=== PATIENT | female | born 1960 | race Caucasian/White ===

== ENCOUNTER → 2016-12-05 | Outpatient (CLI) | payer OTHER ==
[~2016-12-05] MED LIST: CALC600T12 PO; ENAL10TA PO; ESCI20TA45 PO; MESA800T PO; MESA800T3 PO; MULT-1029 PO; OMEG-160 PO; PRD10T PO; PRD20T PO
--- NOTE | 2016-12-06 20:09 | Diagnostic Imaging Report ---
Bilateral screening mammogram The current study was also evaluated with a Computer Aided Detection (CAD) system. Indication: Screening. No current complaints stated on the questionnaire. COMPARISON: 08/25/15 FINDINGS: The breasts are composed of scattered fibroglandular densities. There are scattered benign-appearing calcifications seen. Allowing for technique and positional differences, no suspicious change is seen. IMPRESSION: No significant change. ACR BI-RADS Category 2: Benign findings. Result letter will be mailed to the patient. Note: At least 10% of breast cancer is not imaged by mammography. Dictated by: Dictated on workstation # [id number]
== END ==
LOC: RAD 12:39
PROVIDERS: ATTEND Family Medicine
DX: Z12.31 Encounter for screening mammogram for malignant neoplasm of breast (principal)
CPT/HCPCS: 77067

== ENCOUNTER → 2016-12-13 | Outpatient (CLI) | payer OTHER ==
[~2016-12-13] MED LIST changes: +BARIUM SUSPENSION 2.1% (VANILLA SILQ) 450 ML PO ONE; -CALC600T12 PO; +IOHEXOL 350 MG/ML 100 ML (OMNIPAQUE 350) VIAL IV ONE; -MESA800T PO; -MESA800T3 PO; -MULT-1029 PO; +NS 100 ML (IVPB) BAG IV ONE; -OMEG-160 PO; -PRD10T PO; -PRD20T PO
[2016-12-13 07:25] LABS: BLOOD UREA NITROGEN 8 MG/DL (7-18); BUN/CREATININE RATIO 10; GFR ESTIMATED > 60
--- NOTE | 2016-12-13 09:38 | Diagnostic Imaging Report ---
PROCEDURE: CT abdomen and pelvis with contrast. TECHNIQUE: Multiple contiguous axial images were obtained through the abdomen and pelvis after administration of intravenous contrast. INDICATION: Left abdominal pain, rectal bleeding. 100 mL Omnipaque 350 administered intravenously. FINDINGS: The lung bases appear clear. The liver, the gallbladder, the spleen, the pancreas, and the adrenals appear unremarkable. The kidneys have symmetric enhancement and contrast excretion. There is no hydronephrosis. There is a 1.3-cm cyst in the left kidney seen. Another hypodensity measuring 8 mm in the lower pole of the left kidney is too small to accurately characterize. The abdominal aorta is normal in caliber. No significantly enlarged para-aortic lymph nodes are seen. There is colonic wall thickening suggestive of infectious or inflammatory colitis involving mostly the left colon from the splenic flexure to the rectum. The appendix appears normal. There is no significant free fluid or fluid collection in the abdomen or pelvis. Minimally prominent nonspecific mesenteric lymph nodes are seen up to 0.8 cm in the right lower quadrant. There is suggestion of prior hysterectomy. The urinary bladder is empty. The osseous structures demonstrate prominent sclerotic changes of the sacroiliac joints with associated subchondral erosion compatible with bilateral sacroiliitis. There are also degenerative changes seen in the hip joints of moderate degree worse on the right side and degenerative disc changes in the lumbar spine noted. No effusion or ankylosing changes are seen in the lumbar spine. IMPRESSION: 1. Thickening in the left colon and rectum is suggestive of inflammatory or infectious colitis. 2. There is suggestion of bilateral sacroiliitis. Report was faxed to office of Dr. Donovan @ 9:36 AM/charisse. Dictated by: Dictated on workstation # [id number]
== END ==
LOC: RAD 06:52
PROVIDERS: ATTEND Surgery
DX: K63.89 Other specified diseases of intestine (principal)
CPT/HCPCS: 36415; 74177; 82565; 84520

== ENCOUNTER 2016-12-14 13:11 | Outpatient (CLI) | payer OTHER ==
[2016-12-14] MEDS ORDERED: ENAL10TA PO (13:24)
[2016-12-14] MEDS ORDERED: ESCI20TA45 PO (13:24)
[2016-12-17] MEDS ORDERED: PRD20T PO (15:11)
[2016-12-17] MEDS ORDERED: MESA800T PO (15:12)
== END 2016-12-14 13:27 ==
LOC: PREOP 13:11
PROVIDERS: ATTEND Surgery
DX: Z01.818 Encounter for other preprocedural examination (principal); K62.5 Hemorrhage of anus and rectum

== ENCOUNTER 2016-12-17 11:50 | Day surgery (SDC) | payer OTHER ==
[~2016-12-17] VITALS: Ht 170.2 cm; Wt 70.8 kg
[~2016-12-17 11:50] MED LIST changes: -BARIUM SUSPENSION 2.1% (VANILLA SILQ) 450 ML PO ONE; -IOHEXOL 350 MG/ML 100 ML (OMNIPAQUE 350) VIAL IV ONE; -NS 100 ML (IVPB) BAG IV ONE
[2016-12-17] MEDS ORDERED: NS IV 500 ML 500 ML ONE (12:12)
[2016-12-17] MEDS ORDERED: NS IV 500 ML 500 ML IV ONE (12:15)
[2016-12-17 12:30] VITALS: BP 105/53
--- NOTE | 2016-12-17 14:18 | Conscious Sedation/ASA ---
Conscious Sedation Pre-Proced Time Reviewed: 12:30 ASA Class: 2 Airway Mallampati Classification: ([place] appropriate class) I. II. III, IV Lungs Heart ASA score ASA 1: a normal healthy patient ASA 2: a patient with a mild systemic disease (mid diabetes, controlled hypertension, obesity ASA 3: a patient with a severe systemic disease that limits activity (angina , COPD, prior Myocardial infarction) ASA 4: a patient with an incapacitating disease that is a constant threat to life (CHF, renal failure) ASA 5: a moribund patient not expected to survive 24 hrs. (ruptured aneurysm) ASA 6: a declared brain patient whose organs are being harvested. For emergent operations, add the letter E after the classification Grade 2 Sedation Plan: Discussed options with patient/fam Note The patient is an appropriate candidate to undergo the planned procedure, sedation, and anesthesia. The patient immediately re-assessed prior to indication. EUNICE RAMACHANDRAN MD Dec 17, 2016 2:18 pm
[2016-12-17] MEDS ORDERED: MIDAZOLAM 2 MG/2 ML (VERSED) VIAL ONE ×3 (14:28→14:29)
[2016-12-17] MEDS ORDERED: fentaNYL INJECTION 100 MCG/2 ML AMP ONE (14:28)
[2016-12-17] MEDS: MIDAZOLAM 2 MG/2 ML (VERSED) VIAL IVP PRN ×5 (14:35→14:49)
[2016-12-17] MEDS: fentaNYL INJECTION 100 MCG/2 ML AMP IVP PRN ×4 (14:36→14:50)
--- NOTE | 2016-12-17 15:09 | Endo Procedure Record ---
Endo Procedure Report Date of Procedure Dec 17, 2016 Surgeon (s) EUNICE RAMACHANDRAN MD Post Procedure/Op Diagnosis diffuse inflammation and superficial ulceration extending from the distal rectum, all the way up to the cecum, suggestive of chronic ulcerative colitis Procedure Performed colonoscopy to cecum multiple biopsies Description of Procedure Anesthesia Type: Conscious Sedation Specimen(s) collected/removed mucosal biopsies of different segments of the colon Description of the Procedure Indication for procedure: This lady reported bloody diarrhea and colicky abdominal pain of several days' duration. CT scan showed thickening of the left colon. She was offered colonoscopy to establish a definitive diagnosis. Informed consent was obtained after reviewing the procedure in detail. Description of procedure: She was placed in left lateral decubitus position and her vital signs were monitored. Conscious sedation was achieved using Versed and fentanyl. Digital rectal examination was unremarkable. The colonoscope was then introduced into the rectum and advanced all the way up to cecum. The scope was then withdrawn slowly and the mucosa examined in a systematic fashion. Finding: Diffuse inflammation and superficial ulceration extending from the distal rectum to the cecum. The changes were more pronounced along the sigmoid colon. Multiple biopsies were obtained. She tolerated the procedure well and was taken back to the nursing area in a stable condition. Impression: Bloody diarrhea and abdominal pain. Diffuse inflammation and ulceration. Possibly chronic ulcerative colitis. We will initiate therapy pending histology. Copies To: LOKI DUBON MD, XAVIER M MD Dec 17, 2016 3:09 pm
[2016-12-17] MEDS ORDERED: PRD20T PO ×2 (15:11)
[2016-12-17] MEDS ORDERED: MESA800T PO ×2 (15:12)
--- NOTE | 2016-12-17 15:13 | Discharge Inst-Simple/Standard ---
Discharge Inst-Standard Discharge Medications New, Converted or Re-Newed RX: RX on Chart Patient Instructions/Follow Up Plan of Care/Instructions/FU: ffollow-up with me on December 31 at 2 p.m. Activity as Tolerated: Yes Discharge Diet: No Restrictions EUNICE RAMACHANDRAN MD Dec 17, 2016 3:13 pm
[2016-12-17 15:20] VITALS: BP 133/80
[2016-12-17 15:50] VITALS: BP 119/71
[2016-12-17 16:07] VITALS: BP 119/71
== END 2016-12-17 16:12 | disposition home or self-care (01) ==
LOC: ENDO 11:50
PROVIDERS: ATTEND Surgery
DX: K63.3 Ulcer of intestine (principal); K52.9 Noninfective gastroenteritis and colitis, unspecified; Z83.71 Family history of colonic polyps
CPT/HCPCS: 88305

== ENCOUNTER → 2016-12-20 | Outpatient (CLI) | payer OTHER ==
[~2016-12-20] MED LIST changes: +CALC600T12 PO; +MESA800T PO; +MESA800T3 PO; +MULT-1029 PO; +OMEG-160 PO; +PRD10T PO; +PRD20T PO
== END ==
LOC: PREOP 05:43
PROVIDERS: ATTEND Surgery
DX: Z01.818 Encounter for other preprocedural examination (principal); K62.5 Hemorrhage of anus and rectum

== ENCOUNTER 2017-01-06 20:19 | Observation (INO) | payer OTHER ==
[~2017-01-06] VITALS: Ht 170.2 cm; Wt 78.0 kg
[~2017-01-06 20:19] MED LIST changes: -CALC600T12 PO; -MESA800T3 PO; -MULT-1029 PO; -OMEG-160 PO; -PRD10T PO
[2017-01-06] MEDS ORDERED: MESA800T3 PO (20:32)
[2017-01-06] MEDS ORDERED: PRD10T PO (20:32)
[2017-01-06 20:41] LABS: BASOPHILS % (AUTO) 0 % (0-10); EOSINOPHILS # (AUTO) 0.1 10^3/uL (0.0-0.3); EOSINOPHILS % (AUTO) 0 % (0-10); LYMPHOCYTES % (AUTO) 13 % (12-44); MEAN CORPUSCULAR HEMOGLOBIN 32 PG (25-34); MEAN CORPUSCULAR HGB CONC 33 G/DL (32-36); MEAN CORPUSCULAR VOLUME 98 FL (80-99); MEAN PLATELET VOLUME 8.6 FL (7.4-10.4); MONOCYTES # (AUTO) 1.2 X 10^3 (0.0-1.0); MONOCYTES % (AUTO) 7 % (0-12); NEUTROPHILS # (AUTO) 12.6 X 10^3 (1.8-7.8); NEUTROPHILS % (AUTO) 79 % (42-75); PLATELET COUNT 389 10^3/uL (130-400); RED BLOOD COUNT 3.72 10^6/uL (4.35-5.85); RED CELL DISTRIBUTION WIDTH 15.1 % (10.0-14.5); WHITE BLOOD COUNT 15.9 10^3/uL (4.3-11.0)
[2017-01-06] MEDS ORDERED: ACETAMINOPHEN 500 MG TAB (TYLENOL) PO STA (20:41)
--- NOTE | 2017-01-06 20:41 | ED Chest Pain ---
General Chief Complaint: Chest Pain Stated Complaint: HEADACHE NAUSEA Nursing Triage Note: C/O chest tightness and headache with nausea Nursing Sepsis Screen: No Definite Risk History of Present Illness Time seen by provider: 20:27 Initial Comments Patient reports right-sided chest tightness and pressure. She has a history of ulcerative colitis, she's been treated that she'll by Dr. Ramachandran and Dr. Shepard she is currently on a tapering dose of prednisone for that. She quit smoking in July of this year and stopped taking the aspirin and Tylenol. Timing/Duration: 1-3 hours Severity/Quality: moderate, dull Radiation: no radiation Activities at Onset: none Prior CP/Workup: no prior chest pain, no prior cardiac workup ASA po BUSINESS DEVELOPMENT OFFICER: No NTG SL BUSINESS DEVELOPMENT OFFICER: No Associated Symptoms: fever/chills Allergies and Home Medications Allergies Coded Allergies: No Known Drug Allergies (Unverified , 12/14/16) Home Medications Enalapril Maleate 10 Mg Tablet, 10 MG PO DAILY, (Reported) Escitalopram Oxalate 20 Mg Tablet, 20 MG PO DAILY, (Reported) Mesalamine 800 Mg Tablet.dr, #180 (Reported) Prednisone 10 Mg Tab, #109 (Reported) Review of Systems Constitutional: see HPI, fever, malaise EENTM: No Symptoms Reported, See HPI Respiratory: See HPI, Shortness of Air Cardiovascular: See HPI, Chest Pain Gastrointestinal: No Symptoms Reported, See HPI, Denies Abdominal Pain, Denies Blood Streaked Stools Genitourinary: No Symptoms Reported, See HPI Musculoskeletal: no symptoms reported, see HPI Skin: no symptoms reported, see HPI Psychiatric/Neurological: No Symptoms Reported, See HPI Endocrine: No Symptoms Reported, See HPI Hematologic/Lymphatic: No Symptoms Reported, See HPI All Other Systems Reviewed Negative Unless Noted: Yes Past Qgiqobl-Tnsdww-Otnvyn Hx Patient Social History Alcohol Use: Denies Use Recreational Drug Use: No Smoking Status: Former Smoker Recent Foreign Travel: No Contact w/Someone Who Travel: No Recent Infectious Disease Expo: No Recent Hopitalizations: No Seasonal Allergies Seasonal Allergies: No Surgeries HX Surgeries: Yes (jaw sx, left knee) Surgeries: Hysterectomy Respiratory Hx Respiratory Disorders: No Cardiovascular Hx Cardiac Disorders: Yes Cardiac Disorders: Hypertension Neurological Hx Neurological Disorders: No 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 Genitourinary Hx Genitourinary Disorders: No Gastrointestinal Hx Gastrointestinal Disorders: Yes (rectal bleeding) Gastrointestinal Disorders: Colitis, Chronic Diarrhea Musculoskeletal Hx Musculoskeletal Disorders: No Endocrine Hx Endocrine Disorders: No HEENT HX ENT Disorders: No Cancer Hx Cancer: No Psychosocial Hx Psychiatric Problems: Yes Behavioral Health Disorders: Depression Integumentary HX Skin/Integumentary Disorder: No Blood Transfusions Hx Blood Disorders: No Reviewed Nursing Assessment Reviewed/Agree w Nursing PMH: Yes Physical Exam Vital Signs Vital Sign - Last 12Hours 01/06/17 01/06/17 20:27 20:33 Temp 101.6 Pulse 72 Resp 14 B/P (MAP) 124/83 Pulse Ox 100 O2 Delivery Room Air Capillary Refill : Less Than 3 Seconds General Appearance: No Apparent Distress, WD/WN HEENT: PERRL/EOMI, TMs Normal, Normal ENT Inspection, Pharynx Normal Neck: Full Range of Motion, Normal Inspection, Non Tender, Supple Respiratory: Chest Non Tender, Lungs Clear, Normal Breath Sounds Cardiovascular: Regular Rate, Rhythm, Normal Peripheral Pulses Gastrointestinal: Normal Bowel Sounds, No Organomegaly, No Pulsatile Mass, Non Tender, Soft Extremity: Normal Capillary Refill, Normal Inspection, Normal Range of Motion, Non Tender, No Calf Tenderness, No Pedal Edema Neurologic/Psychiatric: Alert, Oriented x3, No Motor/Sensory Deficits, Normal Mood/Affect Skin: Normal Color, Warm/Dry Lymphatic: No Adenopathy Focused Exam Lactic Acid Level Laboratory Tests Test 01/06/17 20:30 01/06/17 22:15 Lactic Acid Level 2.42 MMOL/L (0.50-2.00) *H 1.86 MMOL/L (0.50-2.00) Progress/Results/Core Measures Results/Orders Lab Results Laboratory Tests Test 01/06/17 20:30 01/06/17 21:00 01/06/17 22:15 Range/Units White Blood Count 15.9 H 4.3-11.0 10^3/uL Red Blood Count 3.72 L 4.35-5.85 10^6/uL Hemoglobin 11.9 11.5-16.0 G/DL Hematocrit 37 35-52 % Mean Corpuscular Volume 98 80-99 FL Mean Corpuscular Hemoglobin 32 25-34 PG Mean Corpuscular Hemoglobin Concent 33 32-36 G/DL Red Cell Distribution Width 15.1 H 10.0-14.5 % Platelet Count 389 130-400 10^3/uL Mean Platelet Volume 8.6 7.4-10.4 FL Neutrophils (%) (Auto) 79 H 42-75 % Lymphocytes (%) (Auto) 13 12-44 % Monocytes (%) (Auto) 7 0-12 % Eosinophils (%) (Auto) 0 0-10 % Basophils (%) (Auto) 0 0-10 % Neutrophils # (Auto) 12.6 H 1.8-7.8 X 10^3 Lymphocytes # (Auto) 2.0 1.0-4.0 X 10^3 Monocytes # (Auto) 1.2 H 0.0-1.0 X 10^3 Eosinophils # (Auto) 0.1 0.0-0.3 10^3/uL Basophils # (Auto) 0.0 0.0-0.1 10^3/uL Neutrophils % (Manual) 75 % Lymphocytes % (Manual) 16 % Monocytes % (Manual) 1 % Eosinophils % (Manual) 0 % Basophils % (Manual) 0 % Band Neutrophils 8 % Blood Morphology Comment NORMAL Prothrombin Time 11.6 L 12.2-14.7 SEC INR Comment 0.9 0.8-1.4 Activated Partial Thromboplast Time 24 24-35 SEC D-Dimer 1.24 H 0.00-0.49 UG/ML Sodium Level 136 135-145 MMOL/L Potassium Level 4.1 3.6-5.0 MMOL/L Chloride Level 98 98-107 MMOL/L Carbon Dioxide Level 25 21-32 MMOL/L Anion Gap 13 5-14 MMOL/L Blood Urea Nitrogen 11 7-18 MG/DL Creatinine 0.74 0.60-1.30 MG/DL Estimat Glomerular Filtration Rate > 60 BUN/Creatinine Ratio 15 Glucose Level 102 70-105 MG/DL Lactic Acid Level 2.42 *H 1.86 0.50-2.00 MMOL/L Calcium Level 8.6 8.5-10.1 MG/DL Magnesium Level 2.2 1.8-2.4 MG/DL Total Bilirubin 0.4 0.1-1.0 MG/DL Aspartate Amino Transf (AST/SGOT) 18 5-34 U/L Alanine Aminotransferase (ALT/SGPT) 19 0-55 U/L Alkaline Phosphatase 106 40-136 U/L Myoglobin 25.2 10.0-92.0 NG/ML Troponin I < 0.30 <0.30 NG/ML Total Protein 6.5 6.4-8.2 GM/DL Albumin 3.7 3.2-4.5 GM/DL Urine Color YELLOW Urine Clarity CLEAR Urine pH 6 5-9 Urine Specific [place] 1.020 1.016-1.022 Urine Protein 1+ H NEGATIVE Urine Glucose (UA) NEGATIVE NEGATIVE Urine Ketones NEGATIVE NEGATIVE Urine Nitrite NEGATIVE NEGATIVE Urine Bilirubin NEGATIVE NEGATIVE Urine Urobilinogen NORMAL NORMAL MG/DL Urine Leukocyte Esterase 1+ H NEGATIVE Urine RBC (Auto) 1+ H NEGATIVE Urine RBC 0-2 /HPF Urine WBC 2-5 /HPF Urine Squamous Epithelial Cells 2-5 /HPF Urine Crystals NONE /LPF Urine Bacteria TRACE /HPF Urine Casts NONE /LPF Urine Mucus LARGE H /LPF Urine Culture Indicated NO Stool Occult Blood Immunoassay POSITIVE H NEGATIVE My Orders Orders - TERI PANTOJA Cbc With Automated Diff (01/06/17 20:32) Magnesium (01/06/17 20:32) Chest 1 View, Ap/Pa Only (01/06/17 20:32) Cardiac Profile 1 (01/06/17 20:32) Comprehensive Metabolic Panel (01/06/17 20:32) Myoglobin Serum (01/06/17 20:32) Protime With Inr (01/06/17 20:32) Partial Thromboplastin Time (01/06/17 20:32) Monitor-Rhythm Ecg Trace Only (01/06/17 20:32) Lipid Panel (01/07/17 06:00) Saline Lock/Iv-Start (01/06/17 20:32) Blood Culture (01/06/17 20:37) Lactic Acid Analyzer (01/06/17 20:37) Fibrin Degradation Products (01/06/17 20:37) Acetaminophen Tablet (Tylenol Tablet) (01/06/17 20:41) Manual Differential (01/06/17 20:30) Saline Lock/Iv-Start (01/06/17 21:09) Ns Iv 1000 Ml (Sodium Chloride 0.9%) (01/06/17 21:09) Ct Angio Chest W (01/06/17 21:12) Stool Culture (01/06/17 21:15) Occult Blood Stool (01/06/17 21:15) C Difficile Ag + Toxin A/B. (01/06/17 21:15) Ua Culture If Indicated (01/06/17 21:26) Ondansetron Injection (Zofran Injectio (01/06/17 21:45) Iohexol Injection (Omnipaque 350 Mg/Ml 1 (01/06/17 22:30) Prednisone Tablet (Deltasone Tablet) (01/06/17 22:30) Morphine Injection (Morphine Injection (01/06/17 22:42) Medications Given in ED Current Medications Medications Dose Ordered Sig/Crissy Route Start Time Stop Time Status Last Admin Dose Admin Iohexol 150 ml ONCE ONCE IV 01/06/17 22:30 01/06/17 22:31 DC 01/06/17 22:25 125 ML Ondansetron HCl 4 mg ONCE ONCE IVP 01/06/17 21:45 01/06/17 21:46 DC 01/06/17 21:46 4 MG Sodium Chloride 1,000 ml @ 0 mls/hr Q0M ONCE IV 01/06/17 21:09 01/06/17 21:10 DC 01/06/17 21:14 0 MLS/HR Vital Signs/I&O Vital Sign - Last 12Hours 01/06/17 01/06/17 20:27 20:33 Temp 101.6 Pulse 72 Resp 14 B/P (MAP) 124/83 Pulse Ox 100 O2 Delivery Room Air Blood Pressure Mean: 97 Progress Note : Time: 20:30 Progress Note Initial evaluation completed, labs, EKG and assessment completed. No aspirin indicated with her previous history of ulcerative colitis and symptoms more of respiratory or abdominal knee. Tylenol 1000 mg for fever. Normal saline 1 L IV 2114 chest x-ray negative, elevated d-dimer and WBC, recommended CT angiography of the chest. We'll reevaluate after this assessment completed. 2129 Zofran 4 mg IV for nausea. Reviewed assessment and diagnostic studies with Dr. Granados agreed with treatment plan thus far. 2144 patient complaining of headache with morphine 2 mg IV, patient reports nausea has improved. Discussed patient with Dr. Noyola by phone who agreed with admission orders. Will consult Dr. Ramachandran in the morning. So sent for antibiotic coverage at this time. CT angiography of the chest negative. ECG Initial ECG Impression Date: Jan 06, 2017 Initial ECG Impression Time: 20:29 Initial ECG Rate: 73 Initial ECG Rhythm: Normal Sinus Initial ECG Intervals: Normal Initial ECG Intervals NM 130, QRS 76, QT 352, QTc 388. [place] PV, QRS 32, T 43. Initial ECG Impression: Normal Initial ECG Comparisson: No Previous ECG Available Comment Reviewed EKG with Dr. Granados, concurred with interpretation. Diagnostic Imaging Diagonstic Imaging: Xray Plain Films/CT/US/NM/MRI: chest Comments NAME: [facility] REC#: [id number] PT STATUS: REG ER : 1960 PHYSICIAN: TERI PANTOJA ADMIT DATE: 01/06/17/ER Signed Date of Exam: 01/06/17 CHEST 1 VIEW, AP/PA ONLY INDICATION: Chest pain. EXAMINATION: Upright portable chest was obtained. FINDINGS: Normal heart size and vascularity. The lungs are clear. There is no effusion or pneumothorax. IMPRESSION: Normal chest. Dictated by: Dictated on workstation # [id number] Dict: 01/06/172043 Trans: 01/06/172111 Interpreted by: EUGENE RUTHERFORD MD Electronically signed by: EUGENE RUTHERFORD MD 01/06/172111 Reviewed: Reviewed by Me Diagonstic Imaging: CT (angiography chest) Plain Films/CT/US/NM/MRI: chest Comments Per staff had impression no PE or aortic dissection, no focal consolidation, right middle lobe subpleural nodularity, follow up per final report colonic thickening concerning for colitis. Reviewed: Reviewed by Me Departure Impression Impression: Primary Impression: Ulcerative colitis Qualified Codes: K51.90 - Ulcerative colitis, unspecified, without complications Additional Impressions: Abdominal pain Qualified Codes: R10.84 - Generalized abdominal pain Dehydration Disposition: ADMITTED INPATIENT Condition: Stable Decision to Admit Reason: Admit from ER (General) Decision to Admit/Date: Jan 06, 2017 Time/Decision to Admit Time: 21:45 Departure-Patient Inst. Referrals: LOKI DUBON MD (PCP/Family) Primary Care Physician Copy Copies To 1: LOKI DUBON MD Copies To 2: EUNICE RAMACHANDRAN MD, AMY ARNP Jan 06, 2017 20:41
--- NOTE | 2017-01-06 20:47 | Diagnostic Imaging Report ---
INDICATION: Chest pain. EXAMINATION: Upright portable chest was obtained. FINDINGS: Normal heart size and vascularity. The lungs are clear. There is no effusion or pneumothorax. IMPRESSION: Normal chest. Dictated by: Dictated on workstation # [id number]
[2017-01-06 20:51] LABS: INR 0.9 (0.8-1.4); PROTHROMBIN TIME PATIENT 11.6 SEC (12.2-14.7)
[2017-01-06 20:58] LABS: BAND NEUTROPHILS 8 %; BASOPHILS % (MANUAL) 0 %; EOSINOPHILS % (MANUAL) 0 %; LYMPHOCYTES % (MANUAL) 16 %; NEUTROPHILS % (MANUAL) 75 %
[2017-01-06 21:02] LABS: ALANINE AMINOTRANSFERASE 19 U/L (0-55); ALBUMIN 3.7 GM/DL (3.2-4.5); ANION GAP 13 MMOL/L (5-14); ASPARTATE AMINO TRANSFERASE 18 U/L (5-34); BILIRUBIN,TOTAL 0.4 MG/DL (0.1-1.0); BLOOD UREA NITROGEN 11 MG/DL (7-18); BUN/CREATININE RATIO 15; CALCIUM 8.6 MG/DL (8.5-10.1); CARBON DIOXIDE 25 MMOL/L (21-32); CHLORIDE 98 MMOL/L (98-107); CREATININE SERUM 0.74 MG/DL (0.60-1.30); GFR ESTIMATED > 60; GLUCOSE 102 MG/DL (70-105); MAGNESIUM 2.2 MG/DL (1.8-2.4); POTASSIUM 4.1 MMOL/L (3.6-5.0); SODIUM 136 MMOL/L (135-145); TOTAL PROTEIN 6.5 GM/DL (6.4-8.2)
[2017-01-06 21:09] LABS: MYOGLOBIN SERUM 25.2 NG/ML (10.0-92.0)
[2017-01-06] MEDS ORDERED: NS IV 1000 ML 1,000 ML IV ONE ×2 (21:09→22:47)
[2017-01-06 21:34] LABS: BILIRUBIN,URINE NEGATIVE (NEGATIVE); KETONES,URINE NEGATIVE (NEGATIVE); LEUKOCYTE ESTERASE ,URINE 1+ (NEGATIVE); NITRITE,URINE NEGATIVE (NEGATIVE); PH,URINE 6 (5-9); PROTEIN,URINE 1+ (NEGATIVE); UROBILINOGEN,URINE NORMAL (NORMAL)
[2017-01-06] MEDS ORDERED: ONDANSETRON 4 MG/2 ML (SDV) Z0FRAN IVP ONE (21:45)
[2017-01-06] MEDS ORDERED: predniSONE 20 MG TAB PO ONE (22:30)
[2017-01-06] MEDS ORDERED: IOHEXOL 350 MG/ML 150 ML (OMNIPAQUE 350) VIAL IV ONE (22:30)
[2017-01-06] MEDS ORDERED: morphine INJ 10 MG/ML 1ML (SYR OR VIAL) IVP STA (22:42)
[2017-01-06 23:45] VITALS: BP 105/59
[2017-01-06] MEDS ORDERED: PIPERACILLIN/TAZOBACTAM 4.5 GM/NS 100 ML IV ONE ×2 (23:45)
[2017-01-06] MEDS ORDERED: CATHETER FLUSH 10 ML SYR IV PRN (23:45)
[2017-01-06] MEDS ORDERED: ONDANSETRON 4 MG/2 ML (SDV) Z0FRAN IV PRN (23:45)
[2017-01-07] MEDS: NS IV 1000 ML 1,000 ML IV SCH ×3 (00:02→21:16)
[2017-01-07] MEDS ORDERED: PIPERACILLIN/TAZOBACTAM 4.5 GM/NS100 ML IVPB IV ONE ×2 (00:30)
[2017-01-07 03:25] VITALS: BP 108/65
[2017-01-07] MEDS: ACETAMINOPHEN 325 MG TABLET/CAPLET (TYLENOL) PO PRN ×2 (04:05→09:45)
[2017-01-07 04:53] LABS: BASOPHILS % (AUTO) 0 % (0-10); EOSINOPHILS % (AUTO) 0 % (0-10); LYMPHOCYTES # (AUTO) 0.7 X 10^3 (1.0-4.0); LYMPHOCYTES % (AUTO) 7 % (12-44); MEAN CORPUSCULAR HEMOGLOBIN 31 PG (25-34); MEAN CORPUSCULAR HGB CONC 31 G/DL (32-36); MEAN CORPUSCULAR VOLUME 99 FL (80-99); MEAN PLATELET VOLUME 8.6 FL (7.4-10.4); MONOCYTES # (AUTO) 0.7 X 10^3 (0.0-1.0); MONOCYTES % (AUTO) 7 % (0-12); NEUTROPHILS # (AUTO) 9.3 X 10^3 (1.8-7.8); NEUTROPHILS % (AUTO) 86 % (42-75); PLATELET COUNT 337 10^3/uL (130-400); RED BLOOD COUNT 3.37 10^6/uL (4.35-5.85); RED CELL DISTRIBUTION WIDTH 15.5 % (10.0-14.5); WHITE BLOOD COUNT 10.8 10^3/uL (4.3-11.0)
[2017-01-07 05:28] LABS: ALANINE AMINOTRANSFERASE 28 U/L (0-55); ALBUMIN 3.1 GM/DL (3.2-4.5); ANION GAP 9 MMOL/L (5-14); ASPARTATE AMINO TRANSFERASE 23 U/L (5-34); BILIRUBIN,TOTAL 0.8 MG/DL (0.1-1.0); BLOOD UREA NITROGEN 9 MG/DL (7-18); BUN/CREATININE RATIO 12; CALCIUM 8.1 MG/DL (8.5-10.1); CARBON DIOXIDE 24 MMOL/L (21-32); CHLORIDE 104 MMOL/L (98-107); CREATININE SERUM 0.75 MG/DL (0.60-1.30); GFR ESTIMATED > 60; GLUCOSE 125 MG/DL (70-105); POTASSIUM 4.4 MMOL/L (3.6-5.0); SODIUM 137 MMOL/L (135-145); TOTAL PROTEIN 5.5 GM/DL (6.4-8.2)
[2017-01-07] MEDS: CATHETER FLUSH 10 ML SYR IV SCH ×3 (05:44→21:11)
[2017-01-07] MEDS: PIPERACILLIN/TAZOBACTAM 4.5 GM/NS100 ML IVPB IV SCH ×6 (05:44→21:16)
[2017-01-07 05:58] LABS: CHOLESTEROL 162 MG/DL (< 200); DIRECT LDL 47 MG/DL (1-129); TRIGLYCERIDES 67 MG/DL (<150); VLDL CHOLESTEROL 13 MG/DL (5-40)
[2017-01-07] MEDS: morphine INJ 10 MG/ML 1ML (SYR OR VIAL) IV PRN ×3 (06:50→13:06)
[2017-01-07 08:00] VITALS: BP 111/66
--- NOTE | 2017-01-07 08:00 | Diagnostic Imaging Report ---
PROCEDURE: CT angiography of the chest with contrast. TECHNIQUE: Multiple contiguous axial images were obtained through the chest after uneventful bolus administration of intravenous contrast. Reconstructed CTA MIP acquisitions were also performed. INDICATION: Chest pain, elevated D-dimer. There are no intraluminal pulmonary arterial filling defects. There were no findings of pulmonary arterial embolus. The patent thoracic aorta is nonaneurysmal. No mural hemorrhage or dissection. Subpleural nodule in the right middle lobe measuring 6 mm. No focal pulmonary consolidation. There is some mild heterogeneous air trapping with slight dependent basilar atelectasis. No thoracic effusion or pneumothorax. No adenopathy. Visualized upper abdomen reveals a fatty liver with abnormal thickening of the floyd of the distal ascending colon, the transverse colon, and the proximal descending colon consistent with nonspecific colitis. No upper abdominal free fluid. Some left renal cortical cysts without hydronephrosis. IMPRESSION: 1. Negative for PE or acute aortic pathology. 2. Partial visualization of the colon consistent with colitis. Mild hepatic steatosis and benign left renal cysts. 3. Subpleural nodule, right middle lobe, etiology indeterminate, however, assuming the absence of any known primary malignancy, would suggest followup CT chest in six months' time. That would not require IV contrast. Dictated by: Dictated on workstation # [id number]
--- NOTE | 2017-01-07 08:09 | History & Physicial ---
History of Present Illness History of Present Illness Reason for visit/HPI 56-year-old female presents to the emergency room during the evening of January with headache and chest tightness. Patient was recently diagnosed with ulcerative colitis and she had seen Dr. Shepard on January 03 where her medications were adjusted. She does report the mesalamine medication was doubled from her surgeon Dr Donovan who recently had performed her colon. She reports she had been doing fairly well on mesalamine 800 mg 3 times a day. Date of Admission Jan 06, 2017 at 22:45 Date Seen by Provider: Jan 07, 2017 Time Seen by Provider: 07:50 I consulted on this patient on 01/07/17 08:04 Attending Physician Loki Adler MD Admitting Physician Loki Adler MD Consult Allergies and Home Medications Allergies Coded Allergies: No Known Drug Allergies (Unverified , 12/14/16) Home Medications Calcium Carbonate 600 Mg Tablet, 600 MG PO 1500, (Reported) Enalapril Maleate 10 Mg Tablet, 10 MG PO DAILY, (Reported) Escitalopram Oxalate 20 Mg Tablet, 20 MG PO DAILY, (Reported) Mesalamine 800 Mg Tablet.dr, 1,600 MG PO TID, (Reported) TAKES 2 (800 MG) TABLETS Multivit-Min/FA/Lycopene/Lut 1 Each Tablet, 1 TAB PO 1500, (Reported) [place]-3/Dha/Epa/Fish Oil 1 Each Capsule, 1,000 MG PO 1500, (Reported) Prednisone 10 Mg Tab, PO UD, (Reported) 4 TABS DAILY PO X 7 DAYS (CURRENTLY ON THIS WEEK) 3 TABS DAILY PO X 7 DAYS 2 TABS DAILY PO X 7 DAYS 1 & 1/2 TABS DAILY X 7 DAYS THEN 1 TAB DAILY THEREAFTER Past Owkbygv-Kkkmti-Lkufxj Hx Patient Social History Marrital Status: Alcohol Use: Occasionally Uses Recreational Drug Use: No Smoking Status: Former Smoker Type Used: Cigarettes Physical Abuse Screen: No Sexual Abuse: No Recent Foreign Travel: No Contact w/other who traveled: No Recent Hopitalizations: No Recent Infectious Disease Expo: No Immunizations Up To Date Date of Pneumonia Vaccine: Aug 07, 2014 Seasonal Allergies Seasonal Allergies: No Surgeries HX Surgeries: Yes (jaw sx, left knee) Surgeries: Hysterectomy Respiratory Hx Respiratory Disorders: No Cardiovascular Hx Cardiovascular Disorders: Yes Cardiac Disorders: Hypertension Neurological Hx Neurological Disorders: No Genitourinary Hx Genitourinary Disorders: No Gastrointestinal Hx Gastrointestinal Disorders: Yes (rectal bleeding) Gastrointestinal Disorders: Colitis, Chronic Diarrhea Musculoskeletal Hx Musculoskeletal Disorders: No Endocrine Hx Endocrine Disorders: No HEENT HX ENT Disorders: No Cancer Hx Cancer: No Psychosocial Hx Psychiatric Problems: Yes Behavioral Health Disorders: Depression Integumentary HX Skin/Integumentary Disorder: No Blood Transfusions Hx Blood Disorders: No Reviewed Nursing Assessment Reviewed/Agree w Nursing PMH: Yes Family Medical History Family Hx: Alzheimer's disease 19 FATHER, Onset:Unknown Drug abuse G8 BROTHER, Onset:Unknown FH: hearing loss 19 MOTHER, Onset:Unknown Ulcerative colitis G8 SISTER, Onset:Unknown Constitutional: see HPI Physical Exam Vital Signs Vital Sign - Last 12Hours 01/06/17 01/06/17 20:27 20:33 Temp 101.6 Pulse 72 Resp 14 B/P (MAP) 124/83 Pulse Ox 100 O2 Delivery Room Air Capillary Refill : Less Than 3 Seconds General Appearance: No Apparent Distress Eyes: Bilateral Eye Normal Inspection HEENT: Normal ENT Inspection Neck: Normal Inspection Respiratory: Lungs Clear Cardiovascular: Regular Rate, Rhythm Gastrointestinal: Abnormal Bowel Sounds (slightly increased), Distended (slight ) Rectal: Deferred Back: Normal Inspection Extremity: No Pedal Edema Assessment/Plan Assessment and Plan 1. Ulcerative colitis -continue with prednisone currently at 40mg po q day -consult Dr. Donovan -IVF at 75cc/hr 2. Headache--most likely related to mesalamine -headache improved currently 3. Chest pain-CT angio and CXR negative Problems: Admission Diagnosis 1. Ulcerative colitis 2. Headache--most likely related to mesalamine 3. Chest pain-CT angio and CXR negative Clinical Quality Measures AMI/AHF: ASA po Prior to arrival: No DVT/VTE Risk/Contraindication: Risk Factor Score Per Nursin RFS Level Per Nursing on Admit: 1=Low/No VTE PPX LOKI ADLER MD Jan 07, 2017 08:09
[2017-01-07] MEDS ORDERED: CALC600T12 PO (09:39)
[2017-01-07] MEDS ORDERED: MULT-1029 PO (09:39)
[2017-01-07] MEDS ORDERED: OMEG-160 PO (09:39)
[2017-01-07 11:48] VITALS: BP 118/70
[2017-01-07] MEDS: PANTOPRAZOLE 40 MG/10 ML (PROTONIX) VIAL IV SCH (14:29)
[2017-01-07 16:27] VITALS: BP 122/74
[2017-01-07] MEDS: predniSONE 10 MG TAB PO SCH (17:15)
[2017-01-07] MEDS ORDERED: ANTACID SUSP 30 ML UDC (MYLANTA) PO PRN (17:30)
--- NOTE | 2017-01-07 18:03 | Consultation ---
History of Present Illness History of Present Illness Patient Consulted On(luz maria/time) 01/07/17 18:01 Date Seen by Provider: Jan 07, 2017 Time Seen by Provider: 17:40 Reason for Visit: headache, shortness of breath and substernal discomfort History of Present Illness newly diagnosed ulcerative colitis on high doses of steroids and Asacol. Admitted with substernal pain headache and not feeling well. Pulmonary embolism ruled out by CT angiogram. Slightly nauseous. Allergies and Home Medications Allergies Coded Allergies: No Known Drug Allergies (Unverified , 12/14/16) Home Medications Calcium Carbonate 600 Mg Tablet, 600 MG PO 1500, (Reported) Enalapril Maleate 10 Mg Tablet, 10 MG PO DAILY, (Reported) Escitalopram Oxalate 20 Mg Tablet, 20 MG PO DAILY, (Reported) Mesalamine 800 Mg Tablet.dr, 1,600 MG PO TID, (Reported) TAKES 2 (800 MG) TABLETS Multivit-Min/FA/Lycopene/Lut 1 Each Tablet, 1 TAB PO 1500, (Reported) [place]-3/Dha/Epa/Fish Oil 1 Each Capsule, 1,000 MG PO 1500, (Reported) Prednisone 10 Mg Tab, PO UD, (Reported) 4 TABS DAILY PO X 7 DAYS (CURRENTLY ON THIS WEEK) 3 TABS DAILY PO X 7 DAYS 2 TABS DAILY PO X 7 DAYS 1 & 1/2 TABS DAILY X 7 DAYS THEN 1 TAB DAILY THEREAFTER Past Ytfqdow-Lfttlj-Ywmwmx Hx Patient Social History Alcohol Use: Occasionally Uses Recreational Drug Use: No Smoking Status: Former Smoker Type Used: Cigarettes Recent Foreign Travel: No Contact w/Someone Who Travel: No Recent Infectious Disease Expo: No Recent Hopitalizations: No Physical Abuse Screen: No Sexual Abuse: No Immunizations Up To Date Date of Pneumonia Vaccine: Aug 07, 2014 Seasonal Allergies Seasonal Allergies: No Surgeries HX Surgeries: Yes (jaw sx, left knee) Surgeries: Hysterectomy Respiratory Hx Respiratory Disorders: No Cardiovascular Hx Cardiac Disorders: Yes Cardiac Disorders: Hypertension Neurological Hx Neurological Disorders: No 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 Genitourinary Hx Genitourinary Disorders: No Gastrointestinal Hx Gastrointestinal Disorders: Yes (rectal bleeding) Gastrointestinal Disorders: Colitis, Chronic Diarrhea Musculoskeletal Hx Musculoskeletal Disorders: No Endocrine Hx Endocrine Disorders: No HEENT HX ENT Disorders: No Cancer Hx Cancer: No Psychosocial Hx Psychiatric Problems: Yes Behavioral Health Disorders: Depression Integumentary HX Skin/Integumentary Disorder: No Blood Transfusions Hx Blood Disorders: No Reviewed Nursing Assessment Reviewed/Agree w Nursing PMH: Yes Family Medical History Family Medial History: Alzheimer's disease 19 FATHER, Onset:Unknown Drug abuse G8 BROTHER, Onset:Unknown FH: hearing loss 19 MOTHER, Onset:Unknown Ulcerative colitis G8 SISTER, Onset:Unknown Review of Systems-General Constitutional: malaise, weakness EENTM: no symptoms reported Respiratory: short of breath Cardiovascular: chest pain Gastrointestinal: diarrhea Genitourinary: no symptoms reported Musculoskeletal: joint pain Skin: no symptoms reported Psychiatric/Neurological: Headache Physical Exam-General Problems Physical Exam Vital Signs Vital Sign - Last 12Hours 01/06/17 01/06/17 20:27 20:33 Temp 101.6 Pulse 72 Resp 14 B/P (MAP) 124/83 Pulse Ox 100 O2 Delivery Room Air Capillary Refill : Less Than 3 Seconds General Appearance: no apparent distress HEENT: normal ENT inspection Gastrointestinal: non tender, soft Assessment/Plan Assessment/Plan Admission Diagnosis/Plan lady with ulcerative colitis. Admitted with headache substernal discomfort. Pulmonary embolism ruled out. Likely her symptoms are related to medications. Able to tolerate and therefore we'll observe. Clinical Quality Measures AMI/AHF: ASA po Prior to arrival: No DVT/VTE Risk/Contraindication: Risk Factor Score Per Nursin RFS Level Per Nursing on Admit: 1=Low/No VTE PPX EUNICE RAMACHANDRAN MD Jan 07, 2017 6:03 pm
[2017-01-07 19:01] VITALS: BP 114/75
[2017-01-07] MEDS: fentaNYL INJECTION 100 MCG/2 ML AMP IVP PRN ×3 (19:06→23:55)
[2017-01-07] MEDS: MESALAMINE DR 400 MG (ASACOL/DELZICOL) TAB/CAPS PO SCH (21:10)
[2017-01-07 23:40] VITALS: BP 122/66
[2017-01-08 03:50] VITALS: BP 88/52
[2017-01-08 05:40] VITALS: BP 92/51
[2017-01-08] MEDS: CATHETER FLUSH 10 ML SYR IV SCH ×3 (05:43→20:14)
[2017-01-08] MEDS: PIPERACILLIN/TAZOBACTAM 4.5 GM/NS100 ML IVPB IV SCH ×2 (05:48)
[2017-01-08 07:12] VITALS: BP 86/54
--- NOTE | 2017-01-08 08:02 | Progress Note (SOAP) ---
Subjective Date Seen by Provider: Jan 08, 2017 Time Seen by Provider: 07:20 Subjective/Events-last exam headache is better and is minimal. Diarrhea persists. Objective Exam Vital Signs Date Time Temp Pulse Resp B/P (MAP) Pulse Ox O2 Delivery O2 Flow Rate FiO2 01/08/17 07:12 97.2 87 20 86/54 94 Room Air 01/08/17 05:40 97.6 83 18 92/51 95 Room Air 01/08/17 03:50 98.1 88 20 88/52 96 Room Air 01/07/17 23:40 101.4 120 20 122/66 90 Room Air 01/07/17 19:01 98.6 106 20 114/75 95 Room Air 01/07/17 16:27 97.5 103 20 122/74 98 Room Air 01/07/17 11:48 100.1 105 20 118/70 95 Room Air 01/07/17 08:00 98.2 85 20 111/66 94 Room Air I & O 01/08/17 07:00 Intake Total 2360 ml Output Total 3100 ml Balance -740 ml Capillary Refill : Less Than 3 Seconds General Appearance: No Apparent Distress HEENT: Pharynx Normal Neck: Non Tender, Supple Respiratory: Lungs Clear Cardiovascular: Regular Rate, Rhythm Gastrointestinal: soft, abnormal bowel sounds (as they are increased) Results Lab Microbiology 01/06/17 Blood Culture - Preliminary, Resulted No growth 01/06/17 C. difficile GDH Antigen & Toxins - Final, Resulted 01/06/17 Stool Culture - Preliminary, Resulted See Comments Assessment/Plan Assessment/Plan Assess & Plan/Chief Complaint 1. Ulcerative colitis -continue with prednisone currently at 40mg po q day -consult Dr. Donovan -IVF at 75cc/hr 01/08 IVFs continue at 75 cc/hour -Mesalamine has been restarted at 3 times a day 2. Headache--most likely related to mesalamine -headache improved currently 01/08 improvement noted 3. Chest pain-CT angio and CXR negative 01/08 CP overall has slightly improved and the time between fentanyl is increasing Clinical Quality Measures AMI/AHF: ASA po Prior to arrival: No DVT/VTE Risk/Contraindication: Risk Factor Score Per Nursin RFS Level Per Nursing on Admit: 1=Low/No VTE PPX LOKI DUBON MD Jan 08, 2017 08:02
[2017-01-08] MEDS: MESALAMINE DR 400 MG (ASACOL/DELZICOL) TAB/CAPS PO SCH (08:33)
[2017-01-08] MEDS: predniSONE 10 MG TAB PO SCH (08:33)
--- NOTE | 2017-01-08 08:50 | Progress Note (SOAP) ---
Subjective Date Seen by Provider: Jan 08, 2017 Time Seen by Provider: 07:25 Subjective/Events-last exam headache resolved. Substernal discomfort much improved. No bloody diarrhea. Review of Systems General: Malaise HEENT: No Head Aches, No Eye Pain, No Ear Pain, No Dysphasia, No Sinus Congestion, No Post Nasal Drip, No Sore Throat Pulmonary: No Dyspnea, No Cough, No Pleuritic Chest Pain Cardiovascular: No: Chest Pain, Edema, Lt Headedness, Orthopnea, Palpitations, Paroxysmal Noc. Dyspnea Gastrointestinal: No: Abdominal Pain, Constipation, Diarrhea, Hematochezia, Melena, Nausea, Vomiting Genitourinary: No Dysuria, No Frequency, No Incontinence, No Hematuria, No Retention Musculoskeletal: No: arm pain, back pain, foot pain, hand pain, leg pain, neck pain, other, shoulder pain Neurological: Weakness Objective Exam Vital Signs Date Time Temp Pulse Resp B/P (MAP) Pulse Ox O2 Delivery O2 Flow Rate FiO2 01/08/17 07:12 97.2 87 20 86/54 94 Room Air 01/08/17 05:40 97.6 83 18 92/51 95 Room Air 01/08/17 03:50 98.1 88 20 88/52 96 Room Air 01/07/17 23:40 101.4 120 20 122/66 90 Room Air 01/07/17 19:01 98.6 106 20 114/75 95 Room Air 01/07/17 16:27 97.5 103 20 122/74 98 Room Air 01/07/17 11:48 100.1 105 20 118/70 95 Room Air I & O 01/08/17 07:00 Intake Total 2360 ml Output Total 3100 ml Balance -740 ml Capillary Refill : Less Than 3 Seconds General Appearance: No Apparent Distress Neck: Normal Inspection Respiratory: Lungs Clear Cardiovascular: Regular Rate, Rhythm Gastrointestinal: non tender, soft Neurologic/Psychiatric: Alert, Oriented x3 Skin: Normal Color, Warm/Dry Results Lab Microbiology 01/06/17 Blood Culture - Preliminary, Resulted No growth 01/06/17 C. difficile GDH Antigen & Toxins - Final, Resulted 01/06/17 Stool Culture - Preliminary, Resulted See Comments Assessment/Plan Assessment/Plan Assess & Plan/Chief Complaint lady with ulcerative colitis. Admitted with headache substernal discomfort. Pulmonary embolism ruled out. Likely her symptoms are related to medications. Able to tolerate and therefore we'll observe. ulcerative colitis. Tolerating oral medications. Headache possibly related to steroids. We will stop IV antibiotics and possibly discharge in 24 hours. Final Diagnosis ulcerative colitis Clinical Quality Measures AMI/AHF: ASA po Prior to arrival: No DVT/VTE Risk/Contraindication: Risk Factor Score Per Nursin RFS Level Per Nursing on Admit: 1=Low/No VTE PPX EUNICE RAMACHANDRAN MD Jan 08, 2017 8:50 am
[2017-01-08] MEDS ORDERED: ENALAPRIL 10 MG (VASOTEC) TAB PO SCH (09:00)
[2017-01-08] MEDS ORDERED: PATIENT MAY USE OWN MEDS, ALL MC SCH (09:15)
[2017-01-08] MEDS: PANTOPRAZOLE 40 MG/10 ML (PROTONIX) VIAL IV SCH (09:42)
[2017-01-08] MEDS: ESCITALOPRAM 20 MG (LEXAPRO) TABLET NON-FORMULARY PO SCH (10:03)
[2017-01-08] MEDS: MESALAMINE 800 MG PO SCH ×3 (10:03→20:14)
[2017-01-08 11:51] VITALS: BP 89/59
[2017-01-08] MEDS: fentaNYL INJECTION 100 MCG/2 ML AMP IVP PRN (14:27)
[2017-01-08] MEDS ORDERED: CALCIUM CARBONATE 600 MG (CALCARB) TAB PO SCH (15:00)
[2017-01-08] MEDS ORDERED: MULTIVIT W/MINERALS TAB (THERAGRAN M) PO SCH (15:00)
[2017-01-08 15:25] VITALS: BP 103/52
[2017-01-08] MEDS ORDERED: predniSONE 10 MG TAB PO SCH (17:00)
[2017-01-08 19:55] VITALS: BP 121/72
[2017-01-09 00:31] VITALS: BP 104/59
[2017-01-09 04:51] VITALS: BP 114/64
[2017-01-09] MEDS: CATHETER FLUSH 10 ML SYR IV SCH (06:45)
[2017-01-09] MEDS: MESALAMINE 800 MG PO SCH (06:46)
[2017-01-09] MEDS ORDERED: PANTOPRAZOLE 40 MG (PROTONIX) TAB PO SCH (07:00)
[2017-01-09] MEDS: ESCITALOPRAM 20 MG (LEXAPRO) TABLET NON-FORMULARY PO SCH (07:54)
[2017-01-09 08:00] VITALS: BP 117/74
--- NOTE | 2017-01-09 08:00 | Discharge Summary ---
Diagnosis/Chief Complaint Date of Admission Jan 06, 2017 at 23:20 Date of Discharge January 09, 2017 Discharge Date: Jan 09, 2017 Discharge Time: 12:00 Admission Diagnosis Admission Diagnosis 1. Ulcerative colitis 2. Headache--most likely related to mesalamine 3. Chest pain-CT angio and CXR negative Discharge Diagnosis 1. Ulcerative colitis 2. Headache--most likely related to mesalamine 3. Chest pain-CT angio and CXR negative Reason Hospital Visit 56-year-old female presents to the emergency room during the evening of January with headache and chest tightness. Patient was recently diagnosed with ulcerative colitis and she had seen Dr. Shepard on January 03 where her medications were adjusted. She does report the mesalamine medication was doubled from her surgeon Dr Donovan who recently had performed her colon. She reports she had been doing fairly well on mesalamine 800 mg 3 times a day. Discharge Summary Hospital Course Hospital Course Patient admitted during the evening of January 06, 2017 with diarrhea, headache as well as chest pain. Labs Laboratory Tests 01/06/17 20:30: White Blood Count 15.9H, Red Blood Count 3.72L, Red Cell Distribution Width 15.1H, Neutrophils (%) (Auto) 79H, Neutrophils # (Auto) 12.6H, Monocytes # (Auto ) 1.2H, Prothrombin Time 11.6L, D-Dimer 1.24H, Lactic Acid Level 2.42*H 01/06/17 21:00: Urine Protein 1+H, Urine Leukocyte Esterase 1+H, Urine RBC (Auto) 1+H, Urine Mucus LARGEH, Stool Occult Blood Immunoassay POSITIVEH 01/06/17 22:15: 01/07/17 04:33: Red Blood Count 3.37L, Red Cell Distribution Width 15.5H, Neutrophils (%) (Auto ) 86H, Neutrophils # (Auto) 9.3H, Hemoglobin 10.5L, Hematocrit 33L, Mean Corpuscular Hemoglobin Concent 31L, Lymphocytes (%) (Auto) 7L, Lymphocytes # ( Auto) 0.7L, Glucose Level 125H, Calcium Level 8.1L, Total Protein 5.5L, Albumin 3.1L, HDL Cholesterol 97H Procedures None. Discharge Physical Examination Allergies: Coded Allergies: No Known Drug Allergies (Unverified , 12/14/16) Vitals & I&Os Vital Signs Date Time Temp Pulse Resp B/P (MAP) Pulse Ox O2 Delivery O2 Flow Rate FiO2 01/09/17 04:51 97.3 92 20 114/64 95 Room Air General Appearance: No Acute Distress Respiratory: Clear to Auscultation Cardiovascular: Regular Rate Abdominal: Normal Bowel Sounds, Soft Skin: No Rashes Neuro: Normal Speech Discharge Home Medications Reviewed and agree with Discharge Medication list on patient's Discharge Instruction sheet Instructions to Patient/Family Please see electonic discharge instructions given to patient. Clinical Quality Measures AMI/AHF: ASA po Prior to arrival: No DVT/VTE Risk/Contraindication: Risk Factor Score Per Nursin RFS Level Per Nursing on Admit: 1=Low/No VTE PPX LOKI DUBON MD Jan 09, 2017 08:00
[2017-01-09] MEDS ORDERED: MESA800T3 PO (12:52)
== END 2017-01-09 08:00 | disposition home or self-care (01) ==
LOC: EDUNIT# 20:19 → ER 20:21 → UNDOADMOB 22:45 → 4TH 22:45 → ENPENDDIS 01-09 12:00
PROVIDERS: ADMIT Family Medicine; ATTEND Family Medicine
DX: K51.90 Ulcerative colitis, unspecified, without complications (principal); E86.0 Dehydration; R51 Headache; I10 Essential (primary) hypertension; Z79.899 Other long term (current) drug therapy
CPT/HCPCS: 36415; 71010; 71275; 80053; 80061; 81000; 82274; 83605; 83735; 83874; 84484; 85007; 85025; 85027; 85379; 85610; 85730; 87040; 87045; 87046; 87324; 87449; 93005; 93041; 96361; 96374; 96375; G0378

== ENCOUNTER 2017-09-01 05:09 | Day surgery (SDC) | payer OTHER ==
[~2017-09-01] VITALS: Ht 170.2 cm; Wt 83.0 kg
[~2017-09-01 05:09] MED LIST changes: +CALC600T12 PO; +MESA800T3 PO; +MULT-1029 PO; +OMEG-160 PO; +PRD10T PO
[2017-09-01] MEDS ORDERED: NS IV 1000 ML 1,000 ML IV ONE (05:27)
--- NOTE | 2017-09-01 05:33 | ED GI ---
General Stated Complaint: AB PAIN W VOMITING Source of Information: Patient (VICTOR M GARZA MD) History of Present Illness Date Seen by Provider: Sep 01, 2017 Time Seen by Provider: 05:20 Initial Comments Here with report of vomiting and abdominal pain especially in the right lower quadrant. Also noted a little bit of diarrhea. She states she has diarrhea not infrequently due to her ulcerative colitis. Denies blood in her vomit or stool. Vomited several times. Overall the nausea and vomiting have improved as well as her pain. It is down to 2 out of 10 currently. She is improved with respect to her ulcerative colitis after starting mesalamine and Humira and follows with Dr. Donovan. Home meds list reviewed. Timing/Duration: 12 Hours, Changing Over Time Severity/Quality: Mild, Moderate, Cramping Location: RLQ Radiation: No Radiation Activities at Onset: None Modifying Factors: Worsens With Eating, Improves With Resting Associated Symptoms: No Back Pain, No Chest Pain, Fever/Chills, Nausea/Vomiting , No Shortness of Air, No Weakness (VICTOR M GARZA MD) Allergies and Home Medications Allergies Coded Allergies: No Known Drug Allergies (Unverified , 12/14/16) Home Medications Calcium Carbonate 600 Mg Tablet, 600 MG PO 1500, (Reported) Enalapril Maleate 10 Mg Tablet, 10 MG PO DAILY, (Reported) Escitalopram Oxalate 20 Mg Tablet, 20 MG PO DAILY, (Reported) Mesalamine 800 Mg Tablet.dr, 800 MG PO TID, (Reported) Multivit-Min/FA/Lycopene/Lut 1 Each Tablet, 1 TAB PO 1500, (Reported) Prednisone 10 Mg Tab, PO UD, (Reported) 4 TABS DAILY PO X 7 DAYS (CURRENTLY ON THIS WEEK) 3 TABS DAILY PO X 7 DAYS 2 TABS DAILY PO X 7 DAYS 1 & 1/2 TABS DAILY X 7 DAYS THEN 1 TAB DAILY THEREAFTER Patient Home Medication List Home Medication List Reviewed: Yes (VICTOR M GARZA MD) Review of Systems Constitutional: see HPI, No chills, fever EENTM: No Symptoms Reported Respiratory: No Symptoms Reported, Denies Cough, Denies Shortness of Air Cardiovascular: Denies Chest Pain, Denies Edema Gastrointestinal: Abdominal Pain, Diarrhea, Nausea, Vomiting Genitourinary: No Symptoms Reported Musculoskeletal: no symptoms reported Skin: no symptoms reported (VICTOR M GARZA MD) All Other Systems Reviewed Negative Unless Noted: Yes (VICTOR M GARZA MD) Past Ftpcpal-Xgiivk-Gshufm Hx Patient Social History Alcohol Use: Occasionally Uses Recreational Drug Use: No Smoking Status: Former Smoker Type Used: Cigarettes Former Smoker, Quit: Jun 09, 2016 Recent Foreign Travel: No Contact w/Someone Who Travel: No Recent Hopitalizations: No (VICTOR M GARZA MD) Immunizations Up To Date Date of Pneumonia Vaccine: Aug 07, 2014 (VICTOR M GARZA MD) Seasonal Allergies Seasonal Allergies: No (VICTOR M GARZA MD) Surgeries History of Surgeries: Yes (jaw sx, left knee) Surgeries: Hysterectomy, Oophorectomy, Orthopedic (VICTOR M GARZA MD) Respiratory History of Respiratory Disorde: No (VICTOR M GARZA MD) Cardiovascular History of Cardiac Disorders: Yes Cardiac Disorders: Hypertension (VICTOR M GARZA MD) Neurological History of Neurological Disord: No (VICTOR M GARZA MD) 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 (VICTOR M GARZA MD) Genitourinary History of Genitourinary Disor: No (VICTOR M GARZA MD) Gastrointestinal History of Gastrointestinal Di: Yes (rectal bleeding) Gastrointestinal Disorders: Colitis, Chronic Diarrhea (VICTOR M GARZA MD) Musculoskeletal History of Musculoskeletal Dis: No (VICTOR M GARZA MD) Endocrine History of Endocrine Disorders: No (VICTOR M GARZA MD) HEENT History of HEENT Disorders: No (VICTOR M GARZA MD) Cancer History of Cancer: No (VICTOR M GARZA MD) Psychosocial History of Psychiatric Problem: Yes Behavioral Health Disorders: Depression (VICTOR M GARZA MD) Integumentary History of Skin or Integumenta: No (VICTOR M GARZA MD) Blood Transfusions History of Blood Disorders: No (VICTOR M GARZA MD) Reviewed Nursing Assessment Reviewed/Agree w Nursing PMH: Yes (VICTOR M GARZA MD) Family Medical History Family Medial History: Alzheimer's disease 19 FATHER, Onset:Unknown Drug abuse G8 BROTHER, Onset:Unknown FH: hearing loss 19 MOTHER, Onset:Unknown Ulcerative colitis G8 SISTER, Onset:Unknown (VICTOR M GARZA MD) Family Medial History: Alzheimer's disease 19 FATHER, Onset:Unknown Drug abuse G8 BROTHER, Onset:Unknown FH: hearing loss 19 MOTHER, Onset:Unknown Ulcerative colitis G8 SISTER, Onset:Unknown (RAJNI GALINDO MD) Physical Exam Vital Signs VS - Last 72 Hours, by Label 09/01/17 05:14 Temp 97.8 Pulse 79 Resp 20 B/P (MAP) 129/90 (103) Pulse Ox 95 O2 Delivery Room Air (RAJNI GALINDO MD) Vital Signs Capillary Refill : (VICTOR M GARZA MD) General Appearance: WD/WN, no apparent distress HEENT: PERRL/EOMI, pharynx normal Neck: full range of motion, supple Respiratory: lungs clear, normal breath sounds Cardiovascular: regular rate, rhythm, no murmur Peripheral Pulses: 2+ Dorsalis Pedis (R), 2+ Left Dors-Pedis (L), 2+ Radial Pulses (R), 2+ Radial Pulses (L) Gastrointestinal: soft, No guarding, No rebound, tenderness (right lower quadrant) Extremities: non-tender, normal inspection, no pedal edema, no calf tenderness Back: normal inspection, no CVA tenderness, no vertebral tenderness Neurologic/Psychiatric: alert, oriented x 3 Skin: normal color, warm/dry (VICTOR M GARZA MD) Progress/Results/Core Measures Results/Orders Lab Results Laboratory Tests Test 09/01/17 05:30 Range/Units White Blood Count 15.4 H 4.3-11.0 10^3/uL Red Blood Count 3.74 L 4.35-5.85 10^6/uL Hemoglobin 12.8 11.5-16.0 G/DL Hematocrit 37 35-52 % Mean Corpuscular Volume 99 80-99 FL Mean Corpuscular Hemoglobin 34 25-34 PG Mean Corpuscular Hemoglobin Concent 35 32-36 G/DL Red Cell Distribution Width 14.3 10.0-14.5 % Platelet Count 293 130-400 10^3/uL Mean Platelet Volume 9.6 7.4-10.4 FL Neutrophils (%) (Auto) 91 H 42-75 % Lymphocytes (%) (Auto) 4 L 12-44 % Monocytes (%) (Auto) 5 0-12 % Eosinophils (%) (Auto) 0 0-10 % Basophils (%) (Auto) 0 0-10 % Neutrophils # (Auto) 14.1 H 1.8-7.8 X 10^3 Lymphocytes # (Auto) 0.6 L 1.0-4.0 X 10^3 Monocytes # (Auto) 0.8 0.0-1.0 X 10^3 Eosinophils # (Auto) 0.0 0.0-0.3 10^3/uL Basophils # (Auto) 0.0 0.0-0.1 10^3/uL Neutrophils % (Manual) 82 % Lymphocytes % (Manual) 3 % Monocytes % (Manual) 7 % Eosinophils % (Manual) 0 % Basophils % (Manual) 0 % Band Neutrophils 7 % Reactive Lymphocytes 1 % Clumped Platelets SLIGHT Blood Morphology Comment NORMAL Urine Color YELLOW Urine Clarity CLEAR Urine pH 6 5-9 Urine Specific [place] 1.020 1.016-1.022 Urine Protein NEGATIVE NEGATIVE Urine Glucose (UA) NEGATIVE NEGATIVE Urine Ketones NEGATIVE NEGATIVE Urine Nitrite NEGATIVE NEGATIVE Urine Bilirubin NEGATIVE NEGATIVE Urine Urobilinogen NORMAL NORMAL MG/DL Urine Leukocyte Esterase 1+ H NEGATIVE Urine RBC (Auto) 3+ H NEGATIVE Urine RBC 0-2 /HPF Urine WBC 0-2 /HPF Urine Squamous Epithelial Cells 0-2 /HPF Urine Crystals NONE /LPF Urine Bacteria TRACE /HPF Urine Casts NONE /LPF Urine Mucus SMALL H /LPF Urine Culture Indicated NO Sodium Level 135 135-145 MMOL/L Potassium Level 4.0 3.6-5.0 MMOL/L Chloride Level 101 98-107 MMOL/L Carbon Dioxide Level 23 21-32 MMOL/L Anion Gap 11 5-14 MMOL/L Blood Urea Nitrogen 14 7-18 MG/DL Creatinine 0.85 0.60-1.30 MG/DL Estimat Glomerular Filtration Rate > 60 BUN/Creatinine Ratio 16 Glucose Level 129 H 70-105 MG/DL Calcium Level 9.4 8.5-10.1 MG/DL Total Bilirubin 0.9 0.1-1.0 MG/DL Aspartate Amino Transf (AST/SGOT) 22 5-34 U/L Alanine Aminotransferase (ALT/SGPT) 14 0-55 U/L Alkaline Phosphatase 147 H 40-136 U/L C-Reactive Protein High Sensitivity 2.87 H 0.00-0.50 MG/DL Total Protein 7.4 6.4-8.2 GM/DL Albumin 4.4 3.2-4.5 GM/DL (RAJNI GALINDO MD) My Orders Orders - RAJNI GALINDO MD Iohexol Injection (Omnipaque 350 Mg/Ml 1 (09/01/17 06:45) Ns (Ivpb) (Sodium Chloride 0.9%) (09/01/17 06:45) Mrsa Screen (Icu,Preop,Cath) (09/01/17 08:06) (RAJNI GALINDO MD) Medications Given in ED Current Medications Medications Dose Ordered Sig/Crissy Route Start Time Stop Time Status Last Admin Dose Admin Iohexol 100 ml ONCE ONCE IV 09/01/17 06:45 09/01/17 06:47 DC 09/01/17 06:37 100 ML Sodium Chloride 250 ml ONCE ONCE IV 09/01/17 06:45 09/01/17 06:47 DC 09/01/17 06:37 80 ML Sodium Chloride 1,000 ml @ 0 mls/hr Q0M ONCE IV 09/01/17 05:27 09/01/17 05:29 DC 09/01/17 05:42 1,000 MLS/HR (RAJNI GALINDO MD) Vital Signs/I&O Vital Sign - Last 12Hours 09/01/17 05:14 Temp 97.8 Pulse 79 Resp 20 B/P (MAP) 129/90 (103) Pulse Ox 95 O2 Delivery Room Air (RAJNI GALINDO MD) Progress Note : Progress Note Seen and evaluated. IV, labs and UA ordered. Normal saline [address] due to complicated history of ulcerative colitis. Monitor patient. (VICTOR M GARZA MD) Progress Note #1: Time: 06:23 Progress Note Care of this patient was assumed from Dr. Garza at 06:10. Clinical presentation and labs reviewed. Report received. Patient to CT. Progress Note #2: Time: 08:15 Progress Note Uncomplicated acute appendicitis was identified on CT scan. Dr. Mabry has been notified and surgery is anticipated. Patient will stay in the emergency room until surgery crew is ready. Patient's pain and nausea is controlled at this time. (RAJNI GALINDO MD) Diagnostic Imaging Diagonstic Imaging: CT Plain Films/CT/US/NM/MRI: abdomen, pelvis Comments CT abdomen and pelvis viewed by me and report reviewed. See report below: NAME: ARIEL MEM[facility] REC#: [id number] PT STATUS: REG ER : 1960 PHYSICIAN: VICTOR M GARZA MD ADMIT DATE: 09/01/17/ER Draft Date of Exam:09/01/17 CT ABD/PELV W (APPENDICITIS) PROCEDURE: CT abdomen and pelvis with contrast, rule out appendicitis. TECHNIQUE: Multiple contiguous axial images were obtained through the abdomen and pelvis after the administration of intravenous contrast. INDICATION: Right abdominal pain. Comparison is made to study of 12/13/2016. FINDINGS: There is mild dependent atelectasis in the visualized lung bases. No focal hepatic or splenic lesion is identified. There are tiny calcifications within the lumen of the gallbladder consistent with gallstones, however there is no evidence of wall thickening or pericholecystic inflammation. No pancreatic or adrenal gland lesion is identified. There is a persistent 1.2 cm cyst in the upper pole of the left kidney with smaller adjacent exophytic nodule which also likely represents a cyst. Scattered mildly prominent mesenteric lymph nodes are seen without pathologic adenopathy. In the right lower quadrant, there is diffuse enlargement of the appendix with mild surrounding edema and inflammation. This does represent a change when compared to previous study. There is no evidence of organized fluid collection to indicate an abscess. Urinary bladder is incompletely evaluated due to the delayed phase imaging. IMPRESSION: Findings are compatible with acute appendicitis without evidence of abscess or pneumoperitoneum. Cholecystolithiasis without evidence of acute cholecystitis. Dictated on workstation # [id number] Dict: 09/01/17 0646 Trans: 09/01/17 0714 [id number] Interpreted by: JENNIFER SMITH MD (RAJNI GALINDO MD) Departure Communication (Admissions) Time/Spoke to Admitting Phy: 07:[address] Mabry (RAJNI GALINDO MD) Impression Impression: Primary Impression: Acute appendicitis Qualified Codes: K35.3 - Acute appendicitis with localized peritonitis Disposition: ADMITTED INPATIENT Condition: Improved Admissions Decision to Admit Reason: Admit from ER (General) Decision to Admit/Date: Sep 01, 2017 Time/Decision to Admit Time: 07:30 (RAJNI GALINDO MD) Departure-Patient Inst. Referrals: LOKI DUBON MD (PCP/Family) Primary Care Physician VICTOR M GARZA MD Sep 01, 2017 05:33 RAJNI GALINDO MD Sep 01, 2017 06:24
[2017-09-01 05:42] LABS: BILIRUBIN,URINE NEGATIVE (NEGATIVE); CLARITY,URINE CLEAR; COLOR,URINE YELLOW; GLUCOSE, URINE (UA) NEGATIVE (NEGATIVE); KETONES,URINE NEGATIVE (NEGATIVE); LEUKOCYTE ESTERASE ,URINE 1+ (NEGATIVE); NITRITE,URINE NEGATIVE (NEGATIVE); PH,URINE 6 (5-9); PROTEIN,URINE NEGATIVE (NEGATIVE); UROBILINOGEN,URINE NORMAL (NORMAL)
[2017-09-01 05:43] LABS: BASOPHILS % (AUTO) 0 % (0-10); EOSINOPHILS % (AUTO) 0 % (0-10); HEMATOCRIT 37 % (35-52); HEMOGLOBIN 12.8 G/DL (11.5-16.0); LYMPHOCYTES # (AUTO) 0.6 X 10^3 (1.0-4.0); LYMPHOCYTES % (AUTO) 4 % (12-44); MEAN CORPUSCULAR HEMOGLOBIN 34 PG (25-34); MEAN CORPUSCULAR HGB CONC 35 G/DL (32-36); MEAN CORPUSCULAR VOLUME 99 FL (80-99); MEAN PLATELET VOLUME 9.6 FL (7.4-10.4); MONOCYTES # (AUTO) 0.8 X 10^3 (0.0-1.0); MONOCYTES % (AUTO) 5 % (0-12); NEUTROPHILS # (AUTO) 14.1 X 10^3 (1.8-7.8); NEUTROPHILS % (AUTO) 91 % (42-75); PLATELET COUNT 293 10^3/uL (130-400); RED BLOOD COUNT 3.74 10^6/uL (4.35-5.85); RED CELL DISTRIBUTION WIDTH 14.3 % (10.0-14.5); WHITE BLOOD COUNT 15.4 10^3/uL (4.3-11.0)
[2017-09-01 05:47] LABS: BACTERIA,URINE TRACE /HPF; RBC,URINE 0-2 /HPF; SQUAMOUS EPITHELIAL CELL,UR 0-2 /HPF; WBC,URINE 0-2 /HPF
[2017-09-01] MEDS ORDERED: AZAT50TA PO (05:47)
[2017-09-01] MEDS ORDERED: POTA99TA21 PO (05:47)
[2017-09-01] MEDS ORDERED: ADAL10SY SQ (05:47)
[2017-09-01 06:01] LABS: BAND NEUTROPHILS 7 %; BASOPHILS % (MANUAL) 0 %; EOSINOPHILS % (MANUAL) 0 %; LYMPHOCYTES % (MANUAL) 3 %; MONOCYTES % (MANUAL) 7 %; NEUTROPHILS % (MANUAL) 82 %; PLATELET CLUMPS SLIGHT; RBC MORPH NORMAL; REACTIVE LYMPHOCYTES 1 %
[2017-09-01 06:06] LABS: ALANINE AMINOTRANSFERASE 14 U/L (0-55); ALBUMIN 4.4 GM/DL (3.2-4.5); ALKALINE PHOSPHATASE 147 U/L (40-136); BILIRUBIN,TOTAL 0.9 MG/DL (0.1-1.0); BUN/CREATININE RATIO 16; CALCIUM 9.4 MG/DL (8.5-10.1); CARBON DIOXIDE 23 MMOL/L (21-32); CHLORIDE 101 MMOL/L (98-107); CREATININE SERUM 0.85 MG/DL (0.60-1.30); GFR ESTIMATED > 60; GLUCOSE 129 MG/DL (70-105); SODIUM 135 MMOL/L (135-145); TOTAL PROTEIN 7.4 GM/DL (6.4-8.2)
[2017-09-01] MEDS ORDERED: NS 250 ML (IVPB) BAG IV ONE (06:45)
[2017-09-01] MEDS ORDERED: IOHEXOL 350 MG/ML 100 ML (OMNIPAQUE 350) VIAL IV ONE (06:45)
--- NOTE | 2017-09-01 07:15 | Diagnostic Imaging Report ---
PROCEDURE: CT abdomen and pelvis with contrast, rule out appendicitis. TECHNIQUE: Multiple contiguous axial images were obtained through the abdomen and pelvis after the administration of intravenous contrast. INDICATION: Right abdominal pain. Comparison is made to study of 12/13/2016. FINDINGS: There is mild dependent atelectasis in the visualized lung bases. No focal hepatic or splenic lesion is identified. There are tiny calcifications within the lumen of the gallbladder consistent with gallstones, however there is no evidence of wall thickening or pericholecystic inflammation. No pancreatic or adrenal gland lesion is identified. There is a persistent 1.2 cm cyst in the upper pole of the left kidney with smaller adjacent exophytic nodule which also likely represents a cyst. Scattered mildly prominent mesenteric lymph nodes are seen without pathologic adenopathy. In the right lower quadrant, there is diffuse enlargement of the appendix with mild surrounding edema and inflammation. This does represent a change when compared to previous study. There is no evidence of organized fluid collection to indicate an abscess. Urinary bladder is incompletely evaluated due to the delayed phase imaging. IMPRESSION: Findings are compatible with acute appendicitis without evidence of abscess or pneumoperitoneum. Cholecystolithiasis without evidence of acute cholecystitis. Dictated by: Dictated on workstation # [id number]
--- OUTSIDE RECORDS SUMMARY | 2017-09-01 08:43 | XMS REPORT | Continuity of Care Document ---
Author Author [facility] Organization [facility] Address Unknown Phone Unavailable Allergies Active Description Code Type Severity Reaction Onset Reported/Identified Relationship to Patient Clinical Status Yes No Allergy Information Available [id number] Drug Allergy Unknown N/A 2016 Yes No Known Drug Allergies [id number] Drug Allergy Unknown N/A 12/14/2016 Medications There is no data. Problems Date Dx Coded Attending Type Code Diagnosis Diagnosed By 08/25/2015 Ot 793.82 08/25/2015 Ot V07.4 08/25/2015 Ot V49.81 08/25/2015 Ot V76.12 08/25/2015 Ot 793.80 08/25/2015 Ot V49.81 08/25/2015 Ot V82.81 08/25/2015 LOKI DUBON MD Ot 793.80 08/25/2015 LOKI DUBON MD Ot V67.9 08/25/2015 LOKI DUBON MD Ot 793.80 08/26/2015 LOKI DUBON MD Ot R92.8 09/09/2015 LOKI DUBON MD Ot R92.8 11/28/2016 Ot 793.82 INCONCLUSIVE MAMMOGRAM 11/28/2016 Ot V07.4 HORMONE REPLACEMENT THERAPY (POSTMENOPAU 11/28/2016 Ot V49.81 ASYMPT POSTMENOPAUSAL STATUS (AGE-RELATE 11/28/2016 Ot V76.12 OTH SCREEN MAMMO-MALIGN NEOPLASM OF [place] 11/28/2016 Ot 793.80 UNSPEC ABNORMAL MAMMOGRAM 11/28/2016 Ot V49.81 ASYMPT POSTMENOPAUSAL STATUS (AGE-RELATE 11/28/2016 Ot V82.81 SCREENING FOR OSTEOPOROSIS 11/28/2016 LOKI DUBON MD Ot 793.80 UNSPEC ABNORMAL MAMMOGRAM 11/28/2016 LOKI DUBON MD Ot V67.9 FOLLOW-UP EXAM NOS 11/28/2016 LOKI DUBON MD Ot 793.80 UNSPEC ABNORMAL MAMMOGRAM 11/28/2016 LOKI DUBON MD, Ot R92.8 OTH ABN AND INCONCLUSIVE FINDINGS ON DX 12/03/2016 Ot 793.82 INCONCLUSIVE MAMMOGRAM 12/03/2016 Ot V07.4 HORMONE REPLACEMENT THERAPY (POSTMENOPAU 12/03/2016 Ot V49.81 ASYMPT POSTMENOPAUSAL STATUS (AGE-RELATE 12/03/2016 Ot V76.12 OTH SCREEN MAMMO-MALIGN NEOPLASM OF [place] 12/03/2016 Ot 793.80 UNSPEC ABNORMAL MAMMOGRAM 12/03/2016 Ot V49.81 ASYMPT POSTMENOPAUSAL STATUS (AGE-RELATE 12/03/2016 Ot V82.81 SCREENING FOR OSTEOPOROSIS 12/03/2016 LOKI DUBON MD Ot 793.80 UNSPEC ABNORMAL MAMMOGRAM 12/03/2016 LOKI DUBON MD, Ot V67.9 FOLLOW-UP EXAM NOS 12/03/2016 LOKI DUBON MD Ot 793.80 UNSPEC ABNORMAL MAMMOGRAM 12/03/2016 LOKI DUBON MD, Ot R92.8 OTH ABN AND INCONCLUSIVE FINDINGS ON DX 12/13/2016 Ot 793.82 INCONCLUSIVE MAMMOGRAM 12/13/2016 Ot V07.4 HORMONE REPLACEMENT THERAPY (POSTMENOPAU 12/13/2016 Ot V49.81 ASYMPT POSTMENOPAUSAL STATUS (AGE-RELATE 12/13/2016 Ot V76.12 OTH SCREEN MAMMO-MALIGN NEOPLASM OF [place] 12/13/2016 Ot 793.80 UNSPEC ABNORMAL MAMMOGRAM 12/13/2016 Ot V49.81 ASYMPT POSTMENOPAUSAL STATUS (AGE-RELATE 12/13/2016 Ot V82.81 SCREENING FOR OSTEOPOROSIS 12/13/2016 LOKI DUBON MD Ot 793.80 UNSPEC ABNORMAL MAMMOGRAM 12/13/2016 LOKI DUBON MD, Ot V67.9 FOLLOW-UP EXAM NOS 12/13/2016 LOKI DUBON MD, Ot 793.80 UNSPEC ABNORMAL MAMMOGRAM 12/13/2016 LOKI DUBON MD, Ot R92.8 OTH ABN AND INCONCLUSIVE FINDINGS ON DX 12/13/2016 LOKI DUBON MD Ot Z12.31 ENCNTR SCREEN MAMMOGRAM FOR MALIGNANT NE 12/14/2016 MADIE ELIZABETH, EUNICE Rodriguez Ot K63.89 OTHER SPECIFIED DISEASES OF INTESTINE 12/17/2016 EUNICE RAMACHANDRAN MD Ot K52.9 NONINFECTIVE GASTROENTERITIS AND COLITIS 12/17/2016 EUNICE RAMACHANDRAN MD Ot K63.3 ULCER OF INTESTINE 12/17/2016 EUNICE RAMACHANDRAN MD, Ot Z83.71 FAMILY HISTORY OF COLONIC POLYPS 12/21/2016 EUNICE RAMACHANDRAN MD, Ot K52.9 NONINFECTIVE GASTROENTERITIS AND COLITIS 12/21/2016 EUNICE RAMACHANDRAN MD Ot K63.3 ULCER OF INTESTINE 12/21/2016 EUNICE RAMACHANDRAN MD, Ot Z83.71 FAMILY HISTORY OF COLONIC POLYPS 12/22/2016 EUNICE RAMACHANDRAN MD, Ot K52.9 NONINFECTIVE GASTROENTERITIS AND COLITIS 12/22/2016 EUNICE RAMACHANDRAN MD, Ot K63.3 ULCER OF INTESTINE 12/22/2016 EUNICE RAMACHANDRAN MD, Ot Z83.71 FAMILY HISTORY OF COLONIC POLYPS 01/08/2017 LOKI DUBON MD, Ot Z12.31 ENCNTR SCREEN MAMMOGRAM FOR MALIGNANT NE 01/08/2017 EUNICE RAMACHANDRAN MD, Ot K63.89 OTHER SPECIFIED DISEASES OF INTESTINE 01/09/2017 LOKI DUBON MD Ot E86.0 DEHYDRATION 01/09/2017 LOKI DUBON MD Ot I10 ESSENTIAL (PRIMARY) HYPERTENSION 01/09/2017 LOKI DUBON MD Ot K51.90 ULCERATIVE COLITIS, UNSPECIFIED, WITHOUT 01/09/2017 LOKI DUBON MD, Ot R51 HEADACHE 01/09/2017 LOKI DUBON MD, Ot Z79.899 OTHER CORRECTION (CURRENT) DRUG THERAPY 01/09/2017 LOKI DUBON MD Ot E86.0 DEHYDRATION 01/09/2017 LOKI DUBON MD Ot I10 ESSENTIAL (PRIMARY) HYPERTENSION 01/09/2017 LOKI DUBON MD Ot K51.90 ULCERATIVE COLITIS, UNSPECIFIED, WITHOUT 01/09/2017 LOKI DUBON MD, Ot R51 HEADACHE 01/09/2017 LOKI DUBON MD, Ot 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 Results Test Result Range Complete blood count (CBC) with automated white blood cell (WBC) differential - 01/06/17 20:30 Blood leukocytes automated count (number/volume) 15.9 10*3/uL 4.3-11.0 Blood erythrocytes automated count (number/volume) 3.72 10*6/uL 4.35-5.85 Venous blood hemoglobin measurement (mass/volume) 11.9 g/dL 11.5-16.0 Blood hematocrit (volume fraction) 37 % 35-52 Automated erythrocyte mean corpuscular volume 98 [foz_us] 80-99 Automated erythrocyte mean corpuscular hemoglobin (mass per erythrocyte) 32 pg 25-34 Automated erythrocyte mean corpuscular hemoglobin concentration measurement ( mass/volume) 33 g/dL 32-36 Automated erythrocyte distribution width ratio 15.1 % 10.0-14.5 Automated blood platelet count (count/volume) 389 10*3/uL 130-400 Automated blood platelet mean volume measurement 8.6 [foz_us] 7.4-10.4 Automated blood neutrophils/100 leukocytes 79 % 42-75 Automated blood lymphocytes/100 leukocytes 13 % 12-44 Blood monocytes/100 leukocytes 7 % 0-12 Automated blood eosinophils/100 leukocytes 0 % 0-10 Automated blood basophils/100 leukocytes 0 % 0-10 Blood neutrophils automated count (number/volume) 12.6 10*3 1.8-7.8 Blood lymphocytes automated count (number/volume) 2.0 10*3 1.0-4.0 Blood monocytes automated count (number/volume) 1.2 10*3 0.0-1.0 Automated eosinophil count 0.1 10*3/uL 0.0-0.3 Automated blood basophil count (count/volume) 0.0 10*3/uL 0.0-0.1 PT panel in platelet poor plasma by coagulation assay - 01/06/17 20:30 Prothrombin time (PT) in platelet poor plasma by coagulation assay 11.6 s 12.2-14.7 INR in platelet poor plasma or blood by coagulation assay 0.9 0.8-1.4 Activated partial thromboplastin time (aPTT) in platelet poor plasma bycoagulation assay - 01/06/17 20:30 Activated partial thromboplastin time (aPTT) in platelet poor plasma bycoagulation assay 24 s 24-35 Blood manual differential performed detection - 01/06/17 20:30 Blood monocytes/100 leukocytes 1 % NRG Manual blood segmented neutrophils/100 leukocytes 75 % NRG Blood band neutrophils/100 leukocytes 8 % NRG Manual blood lymphocytes/100 leukocytes 16 % NRG Manual eosinophils/100 leukocytes in nose 0 % NRG Manual blood basophils/100 leukocytes 0 % NR Blood erythrocyte morphology finding identification NORMAL NRG Fibrin D-dimer FEU measurement in platelet poor plasma (mass/volume) - 20:30 Fibrin D-dimer FEU measurement in platelet poor plasma (mass/volume) 1.24 ug/mL 0.00-0.49 Blood lactic acid measurement (moles/volume) - 01/06/17 20:30 Blood lactic acid measurement (moles/volume) 2.42 mmol/L 0.50-2.00 Comprehensive metabolic panel - 01/06/17 20:30 Serum or plasma sodium measurement (moles/volume) 136 mmol/L 135-145 Serum or plasma potassium measurement (moles/volume) 4.1 mmol/L 3.6-5.0 Serum or plasma chloride measurement (moles/volume) 98 mmol/L 98-107 Carbon dioxide 25 mmol/L 21-32 Serum or plasma anion gap determination (moles/volume) 13 mmol/L 5-14 Serum or plasma urea nitrogen measurement (mass/volume) 11 mg/dL 7-18 Serum or plasma creatinine measurement (mass/volume) 0.74 mg/dL 0.60-1.30 Serum or plasma urea nitrogen/creatinine mass ratio 15 NRG Serum or plasma creatinine measurement with calculation of estimated glomerular filtration rate > NRG Serum or plasma glucose measurement (mass/volume) 102 mg/dL 70-105 Serum or plasma calcium measurement (mass/volume) 8.6 mg/dL 8.5-10.1 Serum or plasma total bilirubin measurement (mass/volume) 0.4 mg/dL 0.1-1.0 Serum or plasma alkaline phosphatase measurement (enzymatic activity/volume) 106 U/L 40-136 Serum or plasma aspartate aminotransferase measurement (enzymatic activity/ volume) 18 U/L 5-34 Serum or plasma alanine aminotransferase measurement (enzymatic activity/volume ) 19 U/L 0-55 Serum or plasma protein measurement (mass/volume) 6.5 g/dL 6.4-8.2 Serum or plasma albumin measurement (mass/volume) 3.7 g/dL 3.2-4.5 Magnesium - 01/06/17 20:30 Magnesium 2.2 mg/dL 1.8-2.4 Serum or plasma troponin i.cardiac measurement (mass/volume) - 01/06/17 20:30 Serum or plasma troponin i.cardiac measurement (mass/volume) < ng/ mL <0.30 Myoglobin, serum - 01/06/17 20:30 Myoglobin, serum 25.2 ng/mL 10.0-92.0 Bacterial blood culture - 01/06/17 20:30 Bacterial blood culture NG NRG Bacterial blood culture - 01/06/17 20:53 Bacterial blood culture NG NRG Stool occult blood screen - 01/06/17 21:00 Stool gastrointestinal hemoglobin detection POSITIVE NEGATIVE Complete urinalysis with reflex to culture - 01/06/17 21:00 Urine color determination YELLOW NRG Urine clarity determination CLEAR NRG Urine pH measurement by test strip 6 5-9 Specific gravity of urine by test strip 1.020 1.016- 1.022 Urine protein assay by test strip, semi-quantitative 1+ NEGATIVE Urine glucose detection by automated test strip NEGATIVE NEGATIVE Erythrocytes detection in urine sediment by light microscopy 1+ NEGATIVE Urine ketones detection by automated test strip NEGATIVE NEGATIVE Urine nitrite detection by test strip NEGATIVE NEGATIVE Urine total bilirubin detection by test strip NEGATIVE NEGATIVE Urine urobilinogen measurement by automated test strip (mass/volume) NORMAL NORMAL Urine leukocyte esterase detection by dipstick 1+ NEGATIVE Automated urine sediment erythrocyte count by microscopy (number/high power field) [HPF] NRG Automated urine sediment leukocyte count by microscopy (number/high power field ) [HPF] NRG Bacteria detection in urine sediment by light microscopy TRACE NRG Squamous epithelial cells detection in urine sediment by light microscopy 2-5 NRG Crystals detection in urine sediment by light microscopy NONE NRG Casts detection in urine sediment by light microscopy NONE NRG Mucus detection in urine sediment by light microscopy LARGE NRG Complete urinalysis with reflex to culture NO NRG C DIFFICILE AG + TOXIN A/B. - 01/06/17 21:00 RESULTS NEGATIVE FOR ANTIGEN AND TOXIN A/B NRG Stool bacteria identification by culture - 01/06/17 21:00 Stool bacteria identification by culture N2 NRG Serum or plasma lactate measurement (moles/volume) - 01/06/17 22:15 Serum or plasma lactate measurement (moles/volume) 1.86 mmol/L 0.50-2.00 Complete blood count (CBC) with automated white blood cell (WBC) differential - 01/07/17 04:33 Blood leukocytes automated count (number/volume) 10.8 10*3/uL 4.3-11.0 Blood erythrocytes automated count (number/volume) 3.37 10*6/uL 4.35-5.85 Venous blood hemoglobin measurement (mass/volume) 10.5 g/dL 11.5-16.0 Blood hematocrit (volume fraction) 33 % 35-52 Automated erythrocyte mean corpuscular volume 99 [foz_us] 80-99 Automated erythrocyte mean corpuscular hemoglobin (mass per erythrocyte) 31 pg 25-34 Automated erythrocyte mean corpuscular hemoglobin concentration measurement ( mass/volume) 31 g/dL 32-36 Automated erythrocyte distribution width ratio 15.5 % 10.0-14.5 Automated blood platelet count (count/volume) 337 10*3/uL 130-400 Automated blood platelet mean volume measurement 8.6 [foz_us] 7.4-10.4 Automated blood neutrophils/100 leukocytes 86 % 42-75 Automated blood lymphocytes/100 leukocytes 7 % 12-44 Blood monocytes/100 leukocytes 7 % 0-12 Automated blood eosinophils/100 leukocytes 0 % 0-10 Automated blood basophils/100 leukocytes 0 % 0-10 Blood neutrophils automated count (number/volume) 9.3 10*3 1.8-7.8 Blood lymphocytes automated count (number/volume) 0.7 10*3 1.0-4.0 Blood monocytes automated count (number/volume) 0.7 10*3 0.0-1.0 Automated eosinophil count 0.0 10*3/uL 0.0-0.3 Automated blood basophil count (count/volume) 0.0 10*3/uL 0.0-0.1 Comprehensive metabolic panel - 01/07/17 04:33 Serum or plasma sodium measurement (moles/volume) 137 mmol/L 135-145 Serum or plasma potassium measurement (moles/volume) 4.4 mmol/L 3.6-5.0 Serum or plasma chloride measurement (moles/volume) 104 mmol/L 98-107 Carbon dioxide 24 mmol/L 21-32 Serum or plasma anion gap determination (moles/volume) 9 mmol/L 5-14 Serum or plasma urea nitrogen measurement (mass/volume) 9 mg/dL 7-18 Serum or plasma creatinine measurement (mass/volume) 0.75 mg/dL 0.60-1.30 Serum or plasma urea nitrogen/creatinine mass ratio 12 NRG Serum or plasma creatinine measurement with calculation of estimated glomerular filtration rate > NRG Serum or plasma glucose measurement (mass/volume) 125 mg/dL 70-105 Serum or plasma calcium measurement (mass/volume) 8.1 mg/dL 8.5-10.1 Serum or plasma total bilirubin measurement (mass/volume) 0.8 mg/dL 0.1-1.0 Serum or plasma alkaline phosphatase measurement (enzymatic activity/volume) 92 U/L 40-136 Serum or plasma aspartate aminotransferase measurement (enzymatic activity/ volume) 23 U/L 5-34 Serum or plasma alanine aminotransferase measurement (enzymatic activity/volume ) 28 U/L 0-55 Serum or plasma protein measurement (mass/volume) 5.5 g/dL 6.4-8.2 Serum or plasma albumin measurement (mass/volume) 3.1 g/dL 3.2-4.5 Lipid 1996 panel - 01/07/17 04:33 Serum or plasma triglyceride measurement (mass/volume) 67 mg/dL <150 Serum or plasma cholesterol measurement (mass/volume) 162 mg/dL < 200 Serum or plasma cholesterol in HDL measurement (mass/volume) 97 mg/ dL 40-60 Cholesterol in LDL [mass/volume] in serum or plasma by direct assay 47 mg/dL 1-129 Serum or plasma cholesterol in VLDL measurement (mass/volume) 13 mg/ dL 5-40 Encounters ACCT No. Visit Date/Time Discharge Status Pt. Type Provider Facility Loc./Unit Complaint [id number] 01/06/2017 23:20:00 01/09/2017 13:22:00 DIS Inpatient JAGDISH ELIZABETH, LOKI Monson [facility] 4TH ULCERATIVE COLITIS, DEHYDRATION, GASTRITIS [id number] 12/20/2016 05:43:00 12/20/2016 23:59:59 CLS Outpatient EUNICE RAMACHANDRAN MD [facility] PREOP RECTAL BLEEDING [id number] 12/17/2016 11:50:00 12/17/2016 16:12:00 DIS Outpatient EUNICE RAMACHANDRAN MD [facility] ENDO RECTAL BLEEDING [id number] 12/14/2016 13:11:00 12/14/2016 13:27:00 DIS Outpatient EUNICE RAMACHANDRAN MD [facility] PREOP RECTAL BLEEDING [id number] 12/13/2016 06:52:00 12/13/2016 23:59:59 CLS Outpatient MADIE ELIZABETH, EUNICE Rodriguez [facility] RAD LUQ/LLQ PAIN,RECTAL BLEEDING [id number] 12/05/2016 12:39:00 12/05/2016 23:59:59 CLS Outpatient LOKI DUBON MD [facility] RAD SCREENING [id number] 08/25/2015 09:38:00 08/25/2015 23:59:59 CLS Outpatient LOKI DUBON MD [facility] RAD SCREENING [id number] 08/13/2013 12:40:00 08/13/2013 23:59:59 CLS Outpatient LOKI DUBON MD [facility] RAD 6 MONTH FOLLOW UP [id number] 01/01/2013 12:53:00 01/01/2013 23:59:59 CLS Outpatient LOKI DUBON MD [facility] RAD FOLLOW UP [id number] 05/16/2012 11:08:00 Document Registration [id number] 04/18/2012 11:19:00 Document Registration
[2017-09-01] MEDS ORDERED: FAMOTIDINE 20MG/2ML IV (PEPCID) IV ONE (08:45)
[2017-09-01] MEDS ORDERED: SCOPOLAMINE 1.5 MG (TRANSDERM-SCOP) PATCH TOP ONE (08:45)
[2017-09-01] MEDS ORDERED: ONDANSETRON 4 MG/2 ML (SDV) Z0FRAN IV ONE (08:45)
[2017-09-01] MEDS ORDERED: ROCURONIUM 10 MG/ML 5 ML SYRINGE IV ONE (08:48)
[2017-09-01] MEDS ORDERED: LIDOCAINE PF 2% 5 ML (XYLOCAINE) VIAL ONE (08:48)
[2017-09-01] MEDS ORDERED: BUPIVACAINE 0.5% 30 ML (SENSORCAINE) VIAL ONE (08:48)
[2017-09-01] MEDS ORDERED: ONDANSETRON 4 MG/2 ML (SDV) Z0FRAN ONE (08:48)
[2017-09-01] MEDS ORDERED: proPOfol 200 MG/20 ML (DIPRIVAN) VIAL IV ONE (08:48)
[2017-09-01] MEDS ORDERED: LIDOCAINE 1% INJ 20 ML (XYLOCAINE) VIAL ONE (08:48)
[2017-09-01] MEDS ORDERED: MIDAZOLAM 2 MG/2 ML (VERSED) VIAL ONE (08:49)
[2017-09-01] MEDS ORDERED: fentaNYL INJECTION 100 MCG/2 ML AMP ONE (08:49)
[2017-09-01] MEDS ORDERED: DEXAMETHASONE 10 MG/ML (DECADRON) 1 ML VIAL ONE (08:50)
--- NOTE | 2017-09-01 08:59 | History & Physical-Surgical ---
History of Present Illness History of Present Illness Reason for visit/HPI CC: RLQ Abdominal pain. Consult requested in ER by Dr. Boo Patient is a 57 year old female that has been having right lower quadrant abdominal pain since last night. Pain continued and became worse overnight. No radiation of pain. 7/10 pain. Worse with pushing on the area. Nothing really making better. Ct reviewed by me and consistent with appendicitis. Denies fever sweats chills shortness of breath or chest pain. Date of Admission T Date Seen by Provider: Sep 01, 2017 Time Seen by Provider: 09:04 I consulted on this patient on 09/01/17 08:54 Attending Physician Shanthi Mabry DO Admitting Physician Giovanni Adler MD Consult Allergies and Home Medications Allergies Coded Allergies: No Known Drug Allergies (Unverified , 12/14/16) Home Medications Calcium Carbonate 600 Mg Tablet, 600 MG PO 1500, (Reported) Enalapril Maleate 10 Mg Tablet, 10 MG PO DAILY, (Reported) Escitalopram Oxalate 20 Mg Tablet, 20 MG PO DAILY, (Reported) Mesalamine 800 Mg Tablet.dr, 800 MG PO TID, (Reported) Multivit-Min/FA/Lycopene/Lut 1 Each Tablet, 1 TAB PO 1500, (Reported) Prednisone 10 Mg Tab, PO UD, (Reported) 4 TABS DAILY PO X 7 DAYS (CURRENTLY ON THIS WEEK) 3 TABS DAILY PO X 7 DAYS 2 TABS DAILY PO X 7 DAYS 1 & 1/2 TABS DAILY X 7 DAYS THEN 1 TAB DAILY THEREAFTER Patient Home Medication List Home Medication List Reviewed: Yes Past Eesdtqg-Onwzci-Nlwakr Hx Patient Social History Alcohol Use: Occasionally Uses Recreational Drug Use: No Smoking Status: Former Smoker Former Smoker, Quit: Jun 09, 2016 Type Used: Cigarettes Recent Foreign Travel: No Contact w/Someone Who Travel: No Recent Infectious Disease Expo: No Recent Hopitalizations: No Immunizations Up To Date PED Vaccines UTD: Yes Date of Pneumonia Vaccine: Aug 07, 2014 Seasonal Allergies Seasonal Allergies: No Surgeries History of Surgeries: Yes (jaw sx, left knee) Surgeries: Hysterectomy, Oophorectomy, Orthopedic Respiratory History of Respiratory Disorde: No Cardiovascular History of Cardiac Disorders: Yes Cardiac Disorders: Hypertension Neurological History of Neurological Disord: No 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 Genitourinary History of Genitourinary Disor: No Gastrointestinal History of Gastrointestinal Di: Yes (rectal bleeding) Gastrointestinal Disorders: Colitis, Chronic Diarrhea Musculoskeletal History of Musculoskeletal Dis: No Endocrine History of Endocrine Disorders: No HEENT History of HEENT Disorders: No Cancer History of Cancer: No Psychosocial History of Psychiatric Problem: Yes Behavioral Health Disorders: Depression Integumentary History of Skin or Integumenta: No Blood Transfusions History of Blood Disorders: No Reviewed Nursing Assessment Reviewed/Agree w Nursing PMH: Yes Family Medical History Significant Family History: No Pertinent Family Hx Family Medial History: Alzheimer's disease 19 FATHER, Onset:Unknown Drug abuse G8 BROTHER, Onset:Unknown FH: hearing loss 19 MOTHER, Onset:Unknown Ulcerative colitis G8 SISTER, Onset:Unknown Constitutional: no symptoms reported EENTM: no symptoms reported Respiratory: no symptoms reported Cardiovascular: no symptoms reported Gastrointestinal: see HPI Genitourinary: no symptoms reported Musculoskeletal: no symptoms reported Skin: no symptoms reported Psychiatric/Neurological: No Symptoms Reported Physical Exam Vital Signs Vital Signs - First Documented 09/01/17 05:14 Temp 97.8 Pulse 79 Resp 20 B/P (MAP) 129/90 (103) Pulse Ox 95 O2 Delivery Room Air Capillary Refill : Less Than 3 Seconds General Appearance: No Apparent Distress HEENT: PERRL/EOMI Neck: Normal Inspection, Non Tender, Supple Respiratory: No Accessory Muscle Use, No Respiratory Distress Cardiovascular: Regular Rate, Rhythm Gastrointestinal: Tenderness (right lower quadrant abdomianal pain) Rectal: Deferred Back: Normal Inspection Extremity: Normal Inspection, Normal Range of Motion Neurologic/Psychiatric: Alert, Oriented x3, No Motor/Sensory Deficits, Normal 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/Affect, 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 Norm as Tested Skin: Normal Color, Warm/Dry Lymphatic: No Adenopathy Data Review Labs Laboratory Tests 09/01/17 05:30: White Blood Count 15.4H, Red Blood Count 3.74L, Hemoglobin 12.8, Hematocrit 37, Mean Corpuscular Volume 99, Mean Corpuscular Hemoglobin 34, Mean Corpuscular Hemoglobin Concent 35, Red Cell Distribution Width 14.3, Platelet Count 293, Mean Platelet Volume 9.6, Neutrophils (%) (Auto) 91H, Lymphocytes (%) (Auto) 4L , Monocytes (%) (Auto) 5, Eosinophils (%) (Auto) 0, Basophils (%) (Auto) 0, Neutrophils # (Auto) 14.1H, Lymphocytes # (Auto) 0.6L, Monocytes # (Auto) 0.8, Eosinophils # (Auto) 0.0, Basophils # (Auto) 0.0, Neutrophils % (Manual) 82, Lymphocytes % (Manual) 3, Monocytes % (Manual) 7, Eosinophils % (Manual) 0, Basophils % (Manual) 0, Band Neutrophils 7, Reactive Lymphocytes 1, Clumped Platelets SLIGHT, Blood Morphology Comment NORMAL, Urine Color YELLOW, Urine Clarity CLEAR, Urine pH 6, Urine Specific [place] 1.020, Urine Protein NEGATIVE , Urine Glucose (UA) NEGATIVE, Urine Ketones NEGATIVE, Urine Nitrite NEGATIVE, Urine Bilirubin NEGATIVE, Urine Urobilinogen NORMAL, Urine Leukocyte Esterase 1+ H, Urine RBC (Auto) 3+H, Urine RBC 0-2, Urine WBC 0-2, Urine Squamous Epithelial Cells 0-2, Urine Crystals NONE, Urine Bacteria TRACE, Urine Casts NONE, Urine Mucus SMALLH, Urine Culture Indicated NO, Sodium Level 135, Potassium Level 4.0, Chloride Level 101, Carbon Dioxide Level 23, Anion Gap 11, Blood Urea Nitrogen 14, Creatinine 0.85, Estimat Glomerular Filtration Rate > 60 , BUN/Creatinine Ratio 16, Glucose Level 129H, Calcium Level 9.4, Total Bilirubin 0.9, Aspartate Amino Transf (AST/SGOT) 22, Alanine Aminotransferase ( ALT/SGPT) 14, Alkaline Phosphatase 147H, C-Reactive Protein High Sensitivity 2.87H, Total Protein 7.4, Albumin 4.4 Assessment/Plan Assessment/Plan Admission Diagonsis acute appendicitis rlq abdominal pain history of ulcerative colitis Admission Status: Observation Assessment/Plan acute appendicitis rlq abdominal pain history of ulcerative colitis discussed risks and benefits of laparoscopic appendectomy all other indicated procedures ancef flagyl IV preop NPO To or SHANTHI MABRY DO Sep 01, 2017 08:59
[2017-09-01] MEDS: LACTATED RINGERS 1,000 ML IV PRN ×2 (09:08→09:45)
[2017-09-01] MEDS ORDERED: ceFAZolin 1,000 MG (ANCEF) VIAL ONE ×2 (09:12→21:11)
[2017-09-01] MEDS ORDERED: metroNIDAZOLE 500MG/100ML IVPB 100 ML ONE (09:12)
[2017-09-01] MEDS ORDERED: morphine INJ 10 MG/ML 1ML (SYR OR VIAL) ONE (09:42)
[2017-09-01] MEDS ORDERED: MEPERIDINE (DEMEROL) INJ 50 MG/ML ONE (09:43)
[2017-09-01] MEDS ORDERED: GLYCOPYRROLATE 0.2 MG/ML (ROBINUL) 2 ML VIAL ONE (10:11)
[2017-09-01] MEDS ORDERED: NEOSTIGMINE 1 MG/ML 5 ML SYRINGE ONE (10:11)
[2017-09-01] MEDS ORDERED: SEVOFLURANE (ULTANE) 15 ML INHAL SOLN ONE (10:13)
[2017-09-01] MEDS ORDERED: morphine INJ 10 MG/ML 1ML (SYR OR VIAL) IV PRN (10:15)
--- NOTE | 2017-09-01 10:15 | Progress Note-Post Operative ---
Post-Operative Progess Note Surgeon (s)/Shipping Room Helper (s) Surgeon SHANTHI ALMARAZ DO Shipping Room Helper: na Pre-Operative Diagnosis appendicitis Post-Operative Diagnosis same Procedure & Operative Findings Date of Procedure 09/01/17 Procedure Performed/Findings lap appy Anesthesia Type gen Estimated Blood Loss Estimated blood loss (mL): min Specimens/Packing Specimens Removed appendix SHANTHI ALMARAZ DO Sep 01, 2017 10:15
[2017-09-01] MEDS ORDERED: PROMETHAZINE INJ 25 MG/ML (PHENERGAN) AMP IVP PRN (10:45)
[2017-09-01] MEDS ORDERED: morphine INJ 10 MG/ML 1ML (SYR OR VIAL) IVP PRN (10:45)
[2017-09-01] MEDS ORDERED: ONDANSETRON 4 MG/2 ML (SDV) Z0FRAN IVP PRN (10:45)
[2017-09-01] MEDS ORDERED: HYDROmorphone (DILAUDID) 2 MG/ML VIAL IVP PRN (10:45)
[2017-09-01] MEDS ORDERED: MEPERIDINE (DEMEROL) INJ 50 MG/ML IVP PRN (10:45)
--- NOTE | 2017-09-01 11:10 | Anesthesia-General Post-Op ---
General Patient Condition Mental Status/LOC: Same as Preop Cardiovascular: Satisfactory Nausea/Vomiting: Present (Being treated by RN with Zofran and Phenergan) Respiratory: Satisfactory Pain: Controlled Complications: Absent Post Op Complications Complications None Follow Up Care/Instructions Patient Instructions None needed. Anesthesia/Patient Condition Patient Condition Patient is doing well, no complaints other than noted, stable vital signs, no apparent adverse anesthesia problems. No complications reported per nursing. AALIYAH YORK CRNA Sep 01, 2017 11:10
[2017-09-01] MEDS ORDERED: DOCU-143 PO (11:27)
[2017-09-01] MEDS ORDERED: ACHD5005 PO (11:27)
[2017-09-01] MEDS: NS IV 1000 ML 1,000 ML IV SCH ×2 (12:23→13:22)
[2017-09-01] MEDS: ceFAZolin INJECTION 2,000 MG in NS (IVPB) 100 ML IV SCH ×2 (13:22→21:14)
[2017-09-01] MEDS: metroNIDAZOLE 500MG/100ML IVPB IV SCH ×2 (14:37→22:13)
[2017-09-01 15:25] VITALS: BP 115/56
[2017-09-01 19:10] VITALS: BP 112/58
[2017-09-01] MEDS: HYDROcodone/APAP 5 MG/325 MG (LORTAB) TAB PO PRN (20:27)
[2017-09-02] VITALS: BP 96/54
[2017-09-02] MEDS: NS IV 1000 ML 1,000 ML IV SCH ×2 (00:41→10:37)
--- NOTE | 2017-09-02 02:02 | OPERATIVE REPORT ---
DATE OF SERVICE: 09/01/2017 PREOPERATIVE DIAGNOSIS: Acute appendicitis. POSTOPERATIVE DIAGNOSIS: Acute appendicitis. PROCEDURE: Laparoscopic appendectomy. SURGEON: Shanthi Mabry DO. ANESTHESIA: General. ESTIMATED BLOOD LOSS: Minimal. COMPLICATIONS: None. INDICATIONS: The patient is a 57-year-old female who started having pain in the right lower quadrant last night. It intensified overnight and the patient came to the Emergency Department for further evaluation. She does have a history of ulcerative colitis, which is under control and she is going for routine colonoscopy at the end of the month. She has a CT scan that was consistent with acute appendicitis. Her physical exam was consistent with acute appendicitis. She was explained about the risks and benefits of procedure and wished to proceed with procedure. Consent was signed in the chart. DESCRIPTION OF PROCEDURE: The patient was taken to the operating suite, she was prepped and draped in sterile fashion. Surgical pause was performed. A 5 mm incision was made at the umbilicus. Kochers used to dissect down to the fascia, grasped and elevated. The Veress needle was inserted into the abdomen and pneumoperitoneum was achieved. Under direct visualization of the laparoscope, a 5 mm trocar was placed in the suprapubic region and a 12 mm trocar was placed in the left lower quadrant. The appendix was then located, was very inflamed, erythematous and rigid. It was able to be grasped, elevated. A [place] was used to dissect around the base of the appendix and an Endo-DESTINY 2.5 stapler was then fired across the base of the appendix. Endo-DESTINY 2.0 reload was then fired across the mesoappendix. The appendix was placed in an Endobag and removed through the 12 mm trocar site. Copious amounts of irrigation was used to irrigate the abdomen. Staple lines were intact. Hemostasis had been achieved. The 12 mm fascial defect was then closed using 0 Vicryl with an Endoclose. The abdomen was then desufflated, the trocars were removed. A total of 20 mL of 0.5% Marcaine and 1% lidocaine at 50:50 ratio was used to anesthetize the incision sites. Skin was then closed using 4-0 Vicryl in a subcuticular fashion. The areas were then washed and dried and SwiftSet was placed over the incisions. The patient tolerated procedure well without any complication. She was taken to the recovery room in stable condition. 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
[2017-09-02 04:15] VITALS: BP 109/53
[2017-09-02] MEDS ORDERED: INFLUENZA TRIvalent 2017-2018 0.5 ML/45 MCG SYR IM ONE (07:00)
[2017-09-02 08:00] VITALS: BP 118/58
[2017-09-02] MEDS: HYDROcodone/APAP 5 MG/325 MG (LORTAB) TAB PO PRN (08:27)
[2017-09-02 12:00] VITALS: BP 115/57
[2017-09-02 14:45] VITALS: BP 115/57
--- NOTE | 2017-09-02 20:08 | Progress Note ---
Subjective Date Seen by Provider: Sep 02, 2017 Time Seen by Provider: 13:30 Subjective/Events-last exam doing well. pain controlled. tolerating diet. denies n/v fever sweats chills shortness of breath or chest pain. Objective Exam Vital Signs Date Time Temp Pulse Resp B/P (MAP) Pulse Ox O2 Delivery O2 Flow Rate FiO2 09/02/17 14:45 56 18 115/57 96 Room Air 09/02/17 12:00 98.9 56 18 115/57 (76) 96 09/02/17 08:00 98.4 68 16 118/58 (78) 94 09/02/17 04:15 98.8 60 18 109/53 (71) 98 Room Air 09/02/17 00:00 97.7 65 18 96/54 (68) 92 Room Air 09/01/17 21:03 Room Air 09/01/17 20:24 Room Air I & O 09/02/17 07:00 Intake Total 3750 ml Output Total 200 ml Balance 3550 ml Capillary Refill : Less Than 3 Seconds General Appearance: No Apparent Distress HEENT: PERRL/EOMI Neck: Normal Inspection, Non Tender, Supple Respiratory: No Accessory Muscle Use, No Respiratory Distress Cardiovascular: Regular Rate, Rhythm Peripheral Pulses: 2+ Dorsalis Pedis (R), 2+ Left Dors-Pedis (L), 2+ Radial Pulses (R), 2+ Radial Pulses (L) Gastrointestinal: soft, no organomegaly, No guarding, No rebound, tenderness ( incisional) Extremity: Normal Inspection, Normal Range of Motion Neurologic/Psychiatric: Alert, Oriented x3, No Motor/Sensory Deficits, Normal 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, 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 as Tested Skin: Normal Color, Warm/Dry Lymphatic: No Adenopathy Results Lab Microbiology 09/01/17 MRSA Screen - Final, Complete MRSA not isolated Assessment/Plan Assessment/Plan Assessment/Plan acute appendicitis rlq abdominal pain history of ulcerative colitis s/p laparoscopic appendectomy doing well tolerating diet, home today Final Diagnosis acute appendicitis rlq abdominal pain history of ulcerative colitis s/p laparoscopic appendectomy Clinical Quality Measures DVT/VTE Risk/Contraindication: Risk Factor Score Per Nursin RFS Level Per Nursing on Admit: 4+=Very High SHANTHI ALMARAZ DO Sep 02, 2017 20:07
== END 2017-09-02 14:00 | disposition home or self-care (01) ==
LOC: EDUNIT# 05:09 → ER 05:11 → SDC 08:15 → 4TH 11:25 → SDC 09-02 14:00
PROVIDERS: ATTEND Surgery
DX: K35.80 Unspecified acute appendicitis (principal); I10 Essential (primary) hypertension; F32.9 Major depressive disorder, single episode, unspecified; K52.9 Noninfective gastroenteritis and colitis, unspecified; Z79.899 Other long term (current) drug therapy; Z87.891 Personal history of nicotine dependence
CPT/HCPCS: 36415; 74177; 80053; 81000; 85007; 85027; 86141; 87081; 94664

== ENCOUNTER → 2018-01-06 | Outpatient (CLI) | payer OTHER ==
[~2018-01-06] MED LIST changes: +ACHD5005 PO; +ADAL10SY SQ; +AZAT50TA PO; +DOCU-143 PO; +POTA99TA21 PO
--- NOTE | 2018-01-06 10:35 | Diagnostic Imaging Report ---
EXAM: CT CHEST SCREENING WO INDICATION: 40 pack year smoking history. Quit smoking one year ago. COMPARISON: CTA chest 01/06/2017. FINDINGS: Peripheral solid pulmonary nodule in the right middle lobe measuring up to 0.6 cm (series 4, image 156) is stable since 01/06/2017. No other pulmonary nodules. No endobronchial lesions. No pleural effusion or pneumothorax. No mediastinal, hilar or axillary lymphadenopathy. Normal heart size. No pericardial effusion. Normal caliber thoracic aorta and main pulmonary arteries. Mild atherosclerotic calcifications including coronary and aortic. The visualized upper abdominal contents are unremarkable. No acute osseous findings. IMPRESSION: 1. 6 mm solid pulmonary nodule in the right middle lobe has been stable since 01/06/2017. Recommend continued annual screening with low dose chest CT in 12 months. 2. Mild atherosclerotic calcifications including coronary and aortic. LungRads category: 2. Modifier: None. Please note that the low-dose technique of this chest CT is of non-diagnostic quality. This study is only intended for lung cancer screening of high risk patients. Dictated by: Dictated on workstation # [id number]
== END ==
LOC: RAD 09:33
PROVIDERS: ATTEND Family Medicine
DX: R91.1 Solitary pulmonary nodule (principal); Z12.2 Encounter for screening for malignant neoplasm of respiratory organs; I25.10 Atherosclerotic heart disease of native coronary artery without angina pectoris; Z87.891 Personal history of nicotine dependence

== ENCOUNTER → 2018-03-27 | Outpatient (CLI) | payer OTHER ==
--- NOTE | 2018-03-27 19:29 | Diagnostic Imaging Report ---
INDICATION: Routine screening. COMPARISON: Comparison is made with prior mammograms from 12/05/2016 and 08/25/2015. TECHNIQUE: 2D and 3D bilateral screening mammography was performed with computer-aided detection (CAD) system. FINDINGS: Scattered fibroglandular densities are identified bilaterally. There are scattered benign-appearing calcifications bilaterally. The parenchymal pattern is stable. No mass or malignant appearing microcalcifications are seen. The axillae are unremarkable. IMPRESSION: No mammographic features suspicious for malignancy are identified. ACR BI-RADS Category 2: Benign findings. Result letter will be mailed to the patient. Note: At least 10% of breast cancer is not imaged by mammography. Dictated by: Dictated on workstation # [id number]
== END ==
LOC: RAD 13:58
PROVIDERS: ATTEND Family Medicine
DX: Z12.31 Encounter for screening mammogram for malignant neoplasm of breast (principal)
CPT/HCPCS: 77067

== ENCOUNTER → 2019-04-24 | Outpatient (CLI) | payer OTHER ==
[~2019-04-24] MED LIST changes: -MESA800T3 PO; +MESA800T9 PO
--- NOTE | 2019-04-24 11:43 | Diagnostic Imaging Report ---
INDICATION: Routine screening. Comparison is made with prior mammogram 03/27/2018 and 12/05/2016. 2-D and 3-D bilateral screening mammography was performed with CAD. Scattered fibroglandular densities are identified bilaterally. Scattered benign-appearing calcifications are noted bilaterally. The parenchymal pattern is stable. No mass or malignant-appearing microcalcifications are seen. Axillae are unremarkable. IMPRESSION: BI-RADS Category 2 No mammographic features suspicious for malignancy are identified. ACR BI-RADS Category 2: Benign findings. Result letter will be mailed to the patient. Note: At least 10% of breast cancer is not imaged by mammography. Dictated by: Dictated on workstation # [id number]
== END ==
LOC: RAD 08:57
PROVIDERS: ATTEND Family Medicine
DX: Z12.31 Encounter for screening mammogram for malignant neoplasm of breast (principal)
CPT/HCPCS: 77067

== ENCOUNTER → 2021-03-31 | Outpatient (CLI) | payer OTHER ==
[~2021-03-31] MED LIST changes: -CALC600T12 PO; +CALC600T91 PO; -ENAL10TA PO; +ENAL10TA16 PO; +ESCI20TA39 PO; -ESCI20TA45 PO
--- NOTE | 2021-04-03 11:01 | Diagnostic Imaging Report ---
INDICATION: Routine screening. COMPARISON: 04/24/2019 and 03/27/2018. TECHNIQUE: 2D and 3D bilateral screening mammography was performed with CAD. FINDINGS: Both breasts are heterogeneously dense, limiting the sensitivity of mammography. Benign calcifications are again noted bilaterally. The overall parenchymal pattern is stable. No mass or malignant-appearing microcalcifications are seen. The axillae are unremarkable. IMPRESSION: No mammographic features suspicious for malignancy are identified. ACR BI-RADS Category 2: Benign findings. Result letter will be mailed to the patient. Note: At least 10% of breast cancer is not imaged by mammography. Dictated by: Dictated on workstation # [id number]
== END ==
LOC: RAD 13:00
PROVIDERS: ATTEND Family Medicine
DX: Z12.31 Encounter for screening mammogram for malignant neoplasm of breast (principal)
CPT/HCPCS: 77063; 77067

== ENCOUNTER → 2022-04-20 | Outpatient (CLI) | payer OTHER ==
[~2022-04-20] MED LIST changes: -POTA99TA21 PO; +POTA99TA26 PO
--- NOTE | 2022-04-20 17:34 | Diagnostic Imaging Report ---
Indication: Routine screening. Comparison is made with prior mammograms 03/31/2021 and 04/24/2019. 2-D and 3-D bilateral screening mammography was performed with CAD. Both breasts are heterogeneously dense, limiting the sensitivity of mammography. Scattered benign calcifications are noted. No mass or malignant-appearing microcalcifications are seen. Axillae are unremarkable. IMPRESSION: BI-RADS Category 2 No mammographic features suspicious for malignancy are identified. ACR BI-RADS Category 2: Benign findings. Result letter will be mailed to the patient. Note: At least 10% of breast cancer is not imaged by mammography. Dictated by: Dictated on workstation # [id number]
== END ==
LOC: RAD 14:40
PROVIDERS: ATTEND Family Medicine
DX: Z12.31 Encounter for screening mammogram for malignant neoplasm of breast (principal)
CPT/HCPCS: 77063; 77067

== ENCOUNTER → 2023-05-06 | Outpatient (CLI) | payer OTHER ==
[~2023-05-06] MED LIST changes: -ENAL10TA16 PO; +ENLP10T PO
--- NOTE | 2023-05-07 09:45 | Diagnostic Imaging Report ---
EXAMINATION: 3D bilateral screening mammogram with CAD. INDICATION: Screening. COMPARISON: This study was compared to the prior exams of 04/20/2022, 03/31/2021, and 04/24/2019. PERSONAL HISTORY: At this time, there are no current complaints. FINDINGS: The breasts are heterogenously dense which may obscure small masses. When compared to the previous study, there does not appear to have been any significant change. There is no primary or secondary sign of malignancy noted. IMPRESSION: There is no evidence for malignancy. ACR BI-RADS Category 1: Negative. Result letter will be mailed to the patient. Note: At least 10% of breast cancer is not imaged by mammography. Dictated by: Dictated on workstation # [id number]
== END ==
LOC: RAD 14:33
PROVIDERS: ATTEND Family Medicine
DX: Z12.31 Encounter for screening mammogram for malignant neoplasm of breast (principal)
CPT/HCPCS: 77063; 77067